=== PATIENT | female | born 1935 | race Caucasian/White ===

== ENCOUNTER 2016-08-01 23:13 | Inpatient (IN) | payer MEDICARE, BC ==
[~2016-08-01] VITALS: Ht 162.6 cm; Wt 50.8 kg
[2016-08-01] MEDS ORDERED: OLAN2.5T3 PO (23:42)
[2016-08-01] MEDS ORDERED: DIVA250T4 PO (23:42)
[2016-08-01] MEDS ORDERED: DONE10TA4 PO (23:42)
[2016-08-01] MEDS ORDERED: CARB1TAB21 PO (23:42)
[2016-08-01] MEDS ORDERED: OXYB5TAB29 PO (23:42)
[2016-08-02] MEDS ORDERED: CEFTRIAXONE 1 G in IV DEXTROSE 5% 50 ML IV ONE (01:00)
[2016-08-02] MEDS ORDERED: AZITHROMYCIN IV 500 MG in IV DEXTROSE 5% 250 ML IV ONE (01:00)
[2016-08-02] MEDS ORDERED: IV NORMAL SALINE 1000 ML BAG IV ONE (01:00)
[2016-08-02 01:56] LABS: POTASSIUM 4.8 mmol/L (3.5-5.1)
[2016-08-02 01:59] LABS: CREATININE 1.9 mg/dL (0.6-1.3)
--- NOTE | 2016-08-02 02:00 | NUR ---
Able to suction with yankur via oral and got about 20ml of yellow thick phelm. 02 sat up to 94% on 2L N/C
[2016-08-02 02:01] LABS: BASOPHILS # (AUTO) 0.1 K/uL (0.0-8.0); BASOPHILS % (AUTO) 0.5 % (0.0-2.0); EOSINOPHILS % (AUTO) 0.1 % (0.0-7.0); HEMOGLOBIN 12.8 G/DL (12.0-16.0); LYMPHOCYTES # (AUTO) 1.5 K/UL (0.8-4.8); LYMPHOCYTES % (AUTO) 9.8 % (20.5-51.5); MEAN CORPUSCULAR HEMOGLOBIN 28.9 UUG (27.0-31.0); MEAN CORPUSCULAR HGB CONC 32 g/dL (32.0-37.0); MEAN CORPUSCULAR VOLUME 90.4 FL (81.0-99.0); MONOCYTES # (AUTO) 2.9 K/UL (0.1-1.30); MONOCYTES % (AUTO) 19.3 % (0.0-11.0); NEUTROPHILS # (AUTO) 10.8 K/UL (1.8-8.9); NEUTROPHILS % (AUTO) 70.3 % (38.5-71.5); PLATELET COUNT (AUTO) 204 K/UL (150-450); RED BLOOD CELL COUNT(AUTO) 4.42 MIL/UL (4.2-5.4); WHITE BLOOD COUNT (AUTO) 15.3 K/UL (4.0-11.2)
[2016-08-02] MEDS ORDERED: AZITHROMYCIN 500 MG VIAL IV ONE (02:04)
[2016-08-02] MEDS ORDERED: CEFTRIAXONE 1 G VIAL ONE (02:05)
[2016-08-02 02:08] LABS: BILIRUBIN,DIRECT 0.2 mg/dL (0.0-0.2); BILIRUBIN,TOTAL 1.3 mg/dL (0.2-1.0); TOTAL PROTEIN, SERUM 7.9 g/dL (6.4-8.2)
[2016-08-02 02:25] LABS: BAND % (MANUAL) 13 % (0-10); LYMPHOCYTES % (MANUAL) 14 % (20-40); MONOCYTES % (MANUAL) 14 % (2-10); NEUTROPHILS % (MANUAL) 59 % (42-75)
[2016-08-02] MEDS ORDERED: CEFTRIAXONE 1 G in IV DEXTROSE 5% 50 ML IV SCH (03:15)
[2016-08-02] MEDS ORDERED: IPRATROPIUM BROMIDE 0.5 MG/2.5 ML NEBU NEB PRN (03:15)
[2016-08-02] MEDS ORDERED: ALBUTEROL SULFATE 2.5 MG/3 ML NEBU NEB PRN (03:15)
[2016-08-02] MEDS ORDERED: MAGNESIUM HYDROXIDE 30 ML LIQUID UDC PO PRN (03:15)
[2016-08-02] MEDS ORDERED: AZITHROMYCIN IV 500 MG in IV DEXTROSE 5% 250 ML IV SCH (03:15)
--- NOTE | 2016-08-02 03:50 | NUR ---
transfered to 2nd floor Tele via zach
[2016-08-02 04:00] VITALS: BP 122/62
[2016-08-02] MEDS: IV NS 1000 ML 1,000 ML IV PRN ×2 (04:15→17:13)
--- NOTE | 2016-08-02 04:15 | NUR ---
RECEIVED PT FROM ER, BIB BY STAFF [facility]IA [facility]. PT IN NO ACUTE DISTRESS. PT WITH BASELINE DEMENTIA, ON 4L O2 WITH SAT 92-93%. VS STABLE. PT ACCOMPANIED BY CAREGIVER, HISTORY OBTAINED WITH ASSISTANCE OF CAREGIVER. ADMISSION DONE PER PROTOCOL. ALL NEEDS ATTENDED AT THIS TIME. MADE COMFORTABLE. PT COUGHING UP THIS WHITE SECRETIONS, SUCTIONED PRN. ON TELE SR ON THE MONITOR. WILL CONTINUE TO MONITOR. Addendum: 08/02/16 at 1937 by KATY OWENS RN PATIENT WITH THIN* WHITE SECRETIONS.
--- NOTE | 2016-08-02 04:59 | NUR ---
PT GOING IN AND OUT OF SR AND A.FIB IN THE 150s, AND WITH SECOND LACTIC ACID DRAWN OF 3.8. MD MORILLO MADE AWARE WITH NO NEW ORDERS. PT ASYMPTOMATIC , ON IVF NS @ 75CC/HR. WILL CONTINUE TO MONITOR.
--- NOTE | 2016-08-02 06:45 | NUR ---
PT SON HERE THIS AM WITH DPOA, AND PT'S LIVING WILL. PER SON PT WANTS TO BE DNR/DNI STATED ON LIVING WILL, COPY ON CHART. PAGED MD MORILLO. AWAITING FOR CALLBACK. WILL ENDORSE TO DAY SHIFT NURSE.
[2016-08-02] MEDS: PANTOPRAZOLE SODIUM 40 MG TABLET.DR PO SCH (09:36)
[2016-08-02] MEDS: CARBIDOPA/LEVODOPA 25-100MG TABLET PO SCH ×3 (09:36→17:13)
[2016-08-02] MEDS: OXYBUTYNIN CHLORIDE 5 MG TABLET PO SCH ×2 (09:36→17:13)
[2016-08-02 12:06] VITALS: BP 121/79
[2016-08-02] MEDS: DONEPEZIL 10 MG TABLET PO SCH (13:05)
--- NOTE | 2016-08-02 13:17 | NUR ---
PATIENT IS VERY CONGESTED WITH LOUD AUDIBLE RALES REQUIRING FREQUENT SUCTIONING WITH O2 AT 4L/M BY NASAL CANULA CALLED AND SPOKE WITH DR YEFRI MORILLO WITH NEW ORDERS FOR SWALLOW EVAL AND CHANGE THE FREQUENCY OF THE HHN AND CHANGE THE DIET TO PURRED AT THIS TIME PENDING SWALLOW EVALUATION.
[2016-08-02] MEDS: IPRATROPIUM BROMIDE 0.5 MG/2.5 ML NEBU NEB SCH ×3 (13:40→19:37)
--- NOTE | 2016-08-02 14:56 | NUR ---
PATIENT WAS SEEN AND EXAMINED BY THE SPEECH AND LANGUAGE THERAPIST WITH RECOMMENDATION FOR PATIENT TO BE NO FOOD BY MOUTH EXCEPT MEDICATIONS AND ICE CHIPS WILL INFORM MD.PATIENTS PRIMARY HEAVY EQUIPMENT SALES ASSOCIATE IS AT THE BEDSIDE AND SHE WAS INSTRUCTED.
[2016-08-02] MEDS: ALBUTEROL SULFATE 2.5 MG/3 ML NEBU NEB SCH ×2 (16:03→22:04)
[2016-08-02 16:08] VITALS: BP 107/60
--- NOTE | 2016-08-02 17:19 | NUR ---
NGT INSERTED GAUGE 14 ORDERED TO RIGHT NARES AND STAT KUB ORDERED.
--- NOTE | 2016-08-02 18:34 | NUR ---
NGT REPORT RECOMMENDED TO ADVANCE THE TUBE 7CM DONE AND DUE MEDICATIONS GIVEN ORDERED AND PATIENT TOLERATED WELL.
[2016-08-02 20:00] VITALS: BP 128/90
[2016-08-02] MEDS: ACETAMINOPHEN 325 MG TABLET PO PRN (20:28)
[2016-08-02 21:00] VITALS: BP 94/55
[2016-08-02] MEDS ORDERED: DIVALPROEX 250 MG TABLET.DR PO SCH (21:00)
[2016-08-02] MEDS ORDERED: AMIODARONE HCL 200 MG TABLET NG SCH (21:15)
--- NOTE | 2016-08-02 21:15 | NUR ---
PT FEBRILE AT THIS TIME WITH TEMP OF 100.1, COLD MEASURES IMPLEMENTED AND PRN TYLENOL GIVEN PRESCRIBED. WILL REASSESS AND CONTINUE ATB TX. PT CONVERTING TO A.FIB IN 160s-170s ON TELE MONITOR. MD GLASS AT NURSING STATION, MADE AWARE, PT SEEN BY WITH NEW ORDER FOR METOPROLOL AND AMIODARONE RECEIVED, WILL GIVE ORDERED. SEE eMAR. WILL CONTINUE TO MONITOR.
[2016-08-02] MEDS: VALPROIC ACID 250 MG/5 ML LIQUID UDC GT SCH (21:59)
[2016-08-02] MEDS ORDERED: METOPROLOL TARTRATE 25 MG TABLET ONE (22:21)
[2016-08-02] MEDS: METOPROLOL TARTRATE 25 MG TABLET PO SCH (22:24)
[2016-08-02] MEDS ORDERED: AMIODARONE HCL 200 MG TABLET ONE ×2 (22:24→22:27)
--- NOTE | 2016-08-02 23:25 | NUR ---
PT IN BED RESTING, NO ACUTE DISTRESS NOTED. SUCTIONED PRN. ON TELE, SR ON THE MONITOR AT THIS TIME, WITH HR 75. WILL CONTINUE TO MONITOR.
[2016-08-03] VITALS: BP 109/63
[2016-08-03] MEDS: IPRATROPIUM BROMIDE 0.5 MG/2.5 ML NEBU NEB SCH ×7 (00:01→23:32)
[2016-08-03] MEDS: CEFTRIAXONE 1 G in IV DEXTROSE 5% 50 ML IV SCH (02:03)
[2016-08-03] MEDS: AZITHROMYCIN IV 500 MG in IV DEXTROSE 5% 250 ML IV SCH (03:07)
[2016-08-03 04:00] VITALS: BP 117/75
[2016-08-03] MEDS: ALBUTEROL SULFATE 2.5 MG/3 ML NEBU NEB SCH ×7 (04:37→23:32)
[2016-08-03] MEDS: PANTOPRAZOLE SODIUM 40 MG TABLET.DR PO SCH (06:17)
[2016-08-03 06:53] LABS: BASOPHILS % (AUTO) 0.1 % (0.0-2.0); LYMPHOCYTES # (AUTO) 1.4 K/UL (0.8-4.8); LYMPHOCYTES % (AUTO) 7.7 % (20.5-51.5); MEAN CORPUSCULAR HEMOGLOBIN 30.9 UUG (27.0-31.0); MEAN CORPUSCULAR HGB CONC 33 g/dL (32.0-37.0); MEAN CORPUSCULAR VOLUME 92.7 FL (81.0-99.0); MONOCYTES # (AUTO) 3.2 K/UL (0.1-1.30); MONOCYTES % (AUTO) 17.6 % (0.0-11.0); NEUTROPHILS # (AUTO) 13.4 K/UL (1.8-8.9); NEUTROPHILS % (AUTO) 74.6 % (38.5-71.5)
--- NOTE | 2016-08-03 06:59 | NUR ---
PATIENT IN BED RESTING, SLEPT WELL PER SHIFT. NO S/S OF RESPIRATORY DISTRESS NOTED. REMAINS ON 4L O2 VIA NC O2 SAT WNL. SUCTIONED PRN. BREATHING TX BY RT GIVEN. TURNED/REPOSITIONED Q2H. ALL DUE MEDS GIVEN BY NGT TOLERATED WELL. KEPT CLEAN AND DRY.ON TELE SR ON THE MONITOR AT THIS TIME WITH HR 80. ALL NEEDS MET. SAFETY AND COMFORT MEASURES PROVIDED.
[2016-08-03 07:08] LABS: PLATELET COUNT (AUTO) 129 K/UL (150-450)
[2016-08-03 07:09] LABS: HEMATOCRIT 29.3 % (37-47); HEMOGLOBIN 9.8 G/DL (12.0-16.0); RED BLOOD CELL COUNT(AUTO) 3.16 MIL/UL (4.2-5.4)
[2016-08-03 07:13] LABS: MAGNESIUM 1.9 mg/dL (1.8-2.4); POTASSIUM 4.5 mmol/L (3.5-5.1)
[2016-08-03 07:19] LABS: CREATININE 1.7 mg/dL (0.6-1.3)
[2016-08-03 07:21] LABS: THYROID STIMULATING HORMONE 0.948 mIU/mL (0.358-3.740)
--- NOTE | 2016-08-03 07:45 | NUR ---
PT RECEIVED IN BED SLEEPING.PRIVATE ENTERPRISE BUSINESS ARCHITECT AND DAUGHTER IS AT BED SIDE..V/S ARE STABLE.
[2016-08-03] MEDS: OXYBUTYNIN CHLORIDE 5 MG TABLET PO SCH ×2 (08:12→16:01)
[2016-08-03] MEDS: DONEPEZIL 10 MG TABLET PO SCH (08:12)
[2016-08-03] MEDS: METOPROLOL TARTRATE 25 MG TABLET PO SCH ×2 (08:13→20:15)
[2016-08-03] MEDS: CARBIDOPA/LEVODOPA 25-100MG TABLET PO SCH ×3 (08:13→16:01)
[2016-08-03 08:39] LABS: BAND % (MANUAL) 18 % (0-10); LYMPHOCYTES % (MANUAL) 10 % (20-40); MONOCYTES % (MANUAL) 17 % (2-10); NEUTROPHILS % (MANUAL) 55 % (42-75)
[2016-08-03] MEDS: IV NS 1000 ML 1,000 ML IV PRN ×2 (09:12→20:54)
[2016-08-03] MEDS ORDERED: AMIODARONE HCL 200 MG TABLET NG SCH (09:58)
[2016-08-03 11:42] VITALS: BP 122/78
--- NOTE | 2016-08-03 12:30 | NUR ---
PT HEART RATE WENT UP TP 136 -140 MD MADE AWARE.
--- NOTE | 2016-08-03 15:40 | NUR ---
PT HEART RATE WENT UP TO 150 DR GLASS MADE AWARE.
[2016-08-03] MEDS: ACETAMINOPHEN 325 MG TABLET PO PRN ×2 (16:01→20:54)
[2016-08-03 16:10] VITALS: BP 100/73
--- NOTE | 2016-08-03 18:12 | NUR ---
PT RESTING IN HER BED SITTER AT BED SIDE PT HEART RATE IS 132.CHARGE NURSE MADE AWARE.
--- NOTE | 2016-08-03 19:30 | NUR ---
NSG: PT IN BED, NO ACUTE DISTRESS NOTED. HOB ELEVATED 45 DEGREES. NGT ON RIGHT NARES, CLAMPED. ON CONT IVF WITH NS AT 75ML/HR. TELE, AFIB WITH HR 106-115. DR. GLASS AWARE OF UNCONTROLLED AFIB. ON AMIODARONE AND LOPRESSOR PO. PRIVATE CAREGIVER AT THE BEDSIDE. SCD'S IN PLACE. CONT TO MONITOR.
[2016-08-03] MEDS: AMIODARONE HCL 200 MG TABLET PO SCH (20:14)
[2016-08-03] MEDS: VALPROIC ACID 250 MG/5 ML LIQUID UDC GT SCH (20:15)
[2016-08-03] MEDS: LACTOBACILLUS RHAMNOSUS GG 1 EACH CAPSULE PO SCH (20:15)
--- NOTE | 2016-08-03 20:30 | NUR ---
NSG: PT DIAPHORETIC. CHECK BLOOD SUGAR, 106. CONT TO MONITOR.
[2016-08-03 20:45] VITALS: BP 114/76
--- NOTE | 2016-08-03 20:50 | NUR ---
NSG: PT HR IN 160'S AFIB. CHECK TEMP, 99.7F AX. ALSO, PT AGITATED, RT SUCTIONED NASALLY. WILL MEDICATE WITH TYLENOL.
[2016-08-03] MEDS: HYDROCODONE/APAP 5-325MG TABLET PO PRN (23:33)
[2016-08-03 23:51] VITALS: BP 135/71
[2016-08-04] MEDS: CEFTRIAXONE 1 G in IV DEXTROSE 5% 50 ML IV SCH (02:24)
[2016-08-04] MEDS: ACETAMINOPHEN 325 MG TABLET PO PRN ×2 (02:43→17:47)
[2016-08-04] MEDS: AZITHROMYCIN IV 500 MG in IV DEXTROSE 5% 250 ML IV SCH (03:06)
[2016-08-04] MEDS: IPRATROPIUM BROMIDE 0.5 MG/2.5 ML NEBU NEB SCH ×6 (03:37→22:41)
[2016-08-04] MEDS: ALBUTEROL SULFATE 2.5 MG/3 ML NEBU NEB SCH ×6 (03:37→22:41)
[2016-08-04 04:00] VITALS: BP 134/73
--- NOTE | 2016-08-04 05:44 | NUR ---
nsg: pt still lethargic, moans and groans at times. afebrile. however, still in uncontrolled afib with hr 117. all needs attended. suctioned prn. cont to monitor.
[2016-08-04] MEDS: PANTOPRAZOLE SODIUM 40 MG TABLET.DR PO SCH ×2 (05:47→05:54)
--- NOTE | 2016-08-04 05:55 | NUR ---
nsg: unable to give protonix tab via ngt, unable to crushed
--- NOTE | 2016-08-04 07:45 | NUR ---
PT MOANING IN BED, DAUGHTER AT BEDSIDE SAID PT STARTED TO MOAN ABOUT AN HOUR AGO, VS STABLE, UNDERGOING BREATHING TREATMENT AT THIS TIME. PT NPO FOR VIDEO SWALLOW STUDY, ALL SAFETY AND COMFORT MEASURES ATTENDED TO, CALL LIGHT IN REACH, WILL CONTINUE TO MONITOR
[2016-08-04 08:33] LABS: BASOPHILS % (AUTO) 0.2 % (0.0-2.0); EOSINOPHILS # (AUTO) 0.1 K/uL (0.0-0.7); EOSINOPHILS % (AUTO) 0.4 % (0.0-7.0); HEMATOCRIT 27.4 % (37-47); HEMOGLOBIN 9.1 G/DL (12.0-16.0); LYMPHOCYTES # (AUTO) 1.3 K/UL (0.8-4.8); LYMPHOCYTES % (AUTO) 9.9 % (20.5-51.5); MEAN CORPUSCULAR HEMOGLOBIN 30.1 UUG (27.0-31.0); MEAN CORPUSCULAR HGB CONC 33 g/dL (32.0-37.0); MEAN CORPUSCULAR VOLUME 90.3 FL (81.0-99.0); MONOCYTES # (AUTO) 1.7 K/UL (0.1-1.30); MONOCYTES % (AUTO) 12.3 % (0.0-11.0); NEUTROPHILS # (AUTO) 10.3 K/UL (1.8-8.9); NEUTROPHILS % (AUTO) 77.2 % (38.5-71.5); PLATELET COUNT (AUTO) 116 K/UL (150-450); RED BLOOD CELL COUNT(AUTO) 3.04 MIL/UL (4.2-5.4); WHITE BLOOD COUNT (AUTO) 13.4 K/UL (4.0-11.2)
--- NOTE | 2016-08-04 08:33 | NUR ---
PT HAS STOPPED MOANING AND IS RESTING COMFORTABLY IN BED AT THIS TIME, WILL CONTINUE TO MONITOR
[2016-08-04 08:52] LABS: BAND % (MANUAL) 10 % (0-10); LYMPHOCYTES % (MANUAL) 11 % (20-40); MONOCYTES % (MANUAL) 16 % (2-10); NEUTROPHILS % (MANUAL) 63 % (42-75)
[2016-08-04 08:56] LABS: BILIRUBIN,TOTAL 0.5 mg/dL (0.2-1.0); MAGNESIUM 2.2 mg/dL (1.8-2.4); PHOSPHOROUS 3.2 mg/dL (2.5-4.9); POTASSIUM 4.2 mmol/L (3.5-5.1)
[2016-08-04 09:14] LABS: CREATININE 1.5 mg/dL (0.6-1.3)
[2016-08-04] MEDS: METOPROLOL TARTRATE 25 MG TABLET PO SCH ×2 (09:15→20:59)
[2016-08-04] MEDS: AMIODARONE HCL 200 MG TABLET PO SCH ×2 (09:16→20:58)
[2016-08-04] MEDS: LACTOBACILLUS RHAMNOSUS GG 1 EACH CAPSULE PO SCH ×2 (09:16→20:57)
[2016-08-04] MEDS: HYDROCODONE/APAP 5-325MG TABLET PO PRN ×2 (09:16→23:35)
[2016-08-04] MEDS: CARBIDOPA/LEVODOPA 25-100MG TABLET PO SCH ×3 (09:16→17:47)
[2016-08-04] MEDS: DONEPEZIL 10 MG TABLET PO SCH (09:16)
[2016-08-04] MEDS: OXYBUTYNIN CHLORIDE 5 MG TABLET PO SCH ×2 (09:16→17:47)
[2016-08-04 11:01] LABS: IRON, SERUM 13 ug/dL (50-175)
[2016-08-04 11:45] VITALS: BP 140/70
--- NOTE | 2016-08-04 13:01 | NUR ---
URINE SENT TO LAB
[2016-08-04 14:00] LABS: *CREATININE,URINE 192.4 mg/dL (30-125); *URINE TOTAL PROTEIN RANDOM 103.4 mg/dL (<150/24HR)
[2016-08-04 14:05] LABS: *BILIRUBIN,URIN NEGATIVE (NEGATIVE); *BLOOD, URINE NEGATIVE (NEGATIVE); *CLARITY,URINE CLEAR (CLEAR); *COLOR,URINE YELLOW (YELLOW); *KETONES,URINE TRACE (NEGATIVE); *PROTEIN,URINE 2+ (NEGATIVE); *UROBILINOGEN,URINE 0.2 E.U./dl (NORMAL); LEUKOCYTE ESTERASE ,URINE NEGATIVE (NEGATIVE); NITRITE, URINE NEGATIVE (NEGATIVE); UGLUCOSE NEGATIVE (NEGATIVE)
[2016-08-04 14:13] LABS: BACTERIA,URINE FEW /HPF (NONE SEEN); RBC,URINE 0-3 /HPF (0-3); SQUAMOUS EPITHELIAL CELL,UR FEW /HPF (NONE SEEN)
[2016-08-04] MEDS: IV NS 1000 ML 1,000 ML IV PRN (14:36)
--- NOTE | 2016-08-04 15:06 | NUR ---
RECOMMENDATION FOR FURTHERING NG TUBE NOTED IN CHEST XRAY. ADVANCE NG TUBE AND KUB ORDERED
[2016-08-04 16:00] VITALS: BP 143/68
--- NOTE | 2016-08-04 17:33 | NUR ---
PAGED DR BARRIOS, NO RETURN PHONE CALL AT THIS TIME. SPOKE WITH DR FERNANDEZ REGARDING NG TUBE PLACEMENT, MD ADVISED NOT SAFE TO GIVE MEDS. WILL CALL DR BARRIOS AGAIN
--- NOTE | 2016-08-04 17:44 | NUR ---
DR BARRIOS MADE AWARE OF SITUATION AND GAVE ORDERS TO RETRACT NG TUBE 3 CM AND CONTINUE GIVING MEDICATIONS.
[2016-08-04] MEDS: IV D5/ 0.9% NACL 1,000 ML IV PRN (18:42)
--- NOTE | 2016-08-04 18:43 | NUR ---
ng tube retracted and medications given per orders. pt awake in bed, in no acute distress. caregiver and daughter at bedside. call light in reach.
[2016-08-04 20:19] VITALS: BP 161/82
[2016-08-04] MEDS: VALPROIC ACID 250 MG/5 ML LIQUID UDC GT SCH (20:59)
[2016-08-04 23:48] VITALS: BP 160/80
[2016-08-05] MEDS: CEFTRIAXONE 1 G in IV DEXTROSE 5% 50 ML IV SCH (01:10)
[2016-08-05] MEDS: ACETAMINOPHEN 325 MG TABLET PO PRN ×2 (01:11→13:34)
[2016-08-05] MEDS: AZITHROMYCIN IV 500 MG in IV DEXTROSE 5% 250 ML IV SCH (02:14)
[2016-08-05] MEDS: IPRATROPIUM BROMIDE 0.5 MG/2.5 ML NEBU NEB SCH ×6 (02:30→23:30)
[2016-08-05] MEDS: ALBUTEROL SULFATE 2.5 MG/3 ML NEBU NEB SCH ×6 (02:30→23:30)
[2016-08-05 04:00] VITALS: BP 171/84
--- NOTE | 2016-08-05 04:54 | NUR ---
PT IN BED, SLEPT INTERMITTENTLY. PT WAS MOANING AND SHAKING AT TIMES, WAS GIVEN NORCO PRESCRIBED, HELPED FOR SHORT PERIOD OF TIME. SR ON TELE MONITOR. NG TUBE PATENT AND INTACT. HOB ELEVATED AT ALL TIMES. TURNED AND REPOSITIONED. SAFETY MAINTAINED. SITTER AT BEDSIDE.
[2016-08-05] MEDS: PANTOPRAZOLE SODIUM 40 MG TABLET.DR PO SCH (06:08)
[2016-08-05] MEDS: METOPROLOL TARTRATE 25 MG TABLET PO SCH ×2 (06:09→21:00)
--- NOTE | 2016-08-05 06:10 | NUR ---
METOPROLOL GIVEN EARLIER THAN SCHEDULED DUE TO BP ELEVATED.
[2016-08-05 07:23] LABS: BASOPHILS % (AUTO) 0.2 % (0.0-2.0); EOSINOPHILS % (AUTO) 0.2 % (0.0-7.0); HEMATOCRIT 28.1 % (37-47); HEMOGLOBIN 9.3 G/DL (12.0-16.0); LYMPHOCYTES # (AUTO) 1.3 K/UL (0.8-4.8); LYMPHOCYTES % (AUTO) 9.7 % (20.5-51.5); MEAN CORPUSCULAR HGB CONC 33 g/dL (32.0-37.0); MEAN CORPUSCULAR VOLUME 90.1 FL (81.0-99.0); MONOCYTES # (AUTO) 0.9 K/UL (0.1-1.30); MONOCYTES % (AUTO) 6.8 % (0.0-11.0); NEUTROPHILS # (AUTO) 11.2 K/UL (1.8-8.9); NEUTROPHILS % (AUTO) 83.1 % (38.5-71.5); PLATELET COUNT (AUTO) 141 K/UL (150-450); RED BLOOD CELL COUNT(AUTO) 3.11 MIL/UL (4.2-5.4); WHITE BLOOD COUNT (AUTO) 13.4 K/UL (4.0-11.2)
[2016-08-05 07:40] LABS: BILIRUBIN,TOTAL 0.5 mg/dL (0.2-1.0); MAGNESIUM 2.4 mg/dL (1.8-2.4); PHOSPHOROUS 3.4 mg/dL (2.5-4.9); POTASSIUM 4.2 mmol/L (3.5-5.1); TOTAL PROTEIN, SERUM 6.5 g/dL (6.4-8.2)
[2016-08-05 07:56] LABS: CREATININE 1.5 mg/dL (0.6-1.3)
--- NOTE | 2016-08-05 08:00 | NUR ---
Awake, confused, moaning intermittently, on moderate high back rest. NGT intact. IVF Infusing. Daughter and caregiver at bedside. For CT Head, transported by bed
[2016-08-05 08:04] LABS: BAND % (MANUAL) 4 % (0-10); LYMPHOCYTES % (MANUAL) 9 % (20-40); MONOCYTES % (MANUAL) 2 % (2-10); NEUTROPHILS % (MANUAL) 85 % (42-75)
[2016-08-05] MEDS: DONEPEZIL 10 MG TABLET PO SCH (09:12)
[2016-08-05] MEDS: PIPERACILLIN/TAZOBACTAM/D5W 2.25 G in PREMIXED 1 EACH IV SCH ×3 (09:12→20:24)
[2016-08-05] MEDS: AMIODARONE HCL 200 MG TABLET PO SCH ×2 (09:13→21:00)
[2016-08-05] MEDS: LACTOBACILLUS RHAMNOSUS GG 1 EACH CAPSULE PO SCH ×2 (09:13→21:00)
[2016-08-05] MEDS: OXYBUTYNIN CHLORIDE 5 MG TABLET PO SCH ×2 (09:14→17:00)
[2016-08-05] MEDS: CARBIDOPA/LEVODOPA 25-100MG TABLET PO SCH ×3 (09:14→17:00)
[2016-08-05] MEDS: hydrALAZINE HCL 20 MG/1 ML VIAL IV PRN (09:28)
--- NOTE | 2016-08-05 09:28 | NUR ---
Elevated BP. Hydralazine IV given after verified. Zosyn and Vanco IV given as ordered
[2016-08-05] MEDS: HYDROCODONE/APAP 5-325MG TABLET PO PRN (09:53)
[2016-08-05] MEDS: VANCOMYCIN IV 750 MG in IV DEXTROSE 5% 250 ML IV SCH (09:53)
[2016-08-05 11:56] VITALS: BP 130/51
--- NOTE | 2016-08-05 13:00 | NUR ---
Dr. Reyes informed that noted gurgling/crackles after giving medication through NGT. Secretions suctioned. CXR ordered.
--- NOTE | 2016-08-05 15:00 | NUR ---
Assisted out of bed by PT, ambulated outside of room.
[2016-08-05 15:30] VITALS: BP 151/75
--- NOTE | 2016-08-05 16:17 | NUR ---
Clinical pharmacy note-Vancomycin dosing per pharmacy Subjective: To start Vancomycin dosing on this patient for pneumonia Objective: BUN 42 Scr 1.5 WBC 13.4 Temp 99.7 Assessment/Plan: Vancomycin 750mg IV every 36hrs to start(first dose today at 1000) and draw trough by 4th dose(not ordered yet) for expected trough around 16. Will monitor renal function closely to adjust the dose if needed. Will follow daily.
--- NOTE | 2016-08-05 18:30 | NUR ---
NGT reinserted to left nares. Stat CXR ordered. Endorsed for further care and follow up
[2016-08-05] MEDS: IV D5/ 0.9% NACL 1,000 ML IV PRN (18:41)
[2016-08-05 19:00] VITALS: BP 148/83
[2016-08-05] MEDS: VALPROIC ACID 250 MG/5 ML LIQUID UDC GT SCH (21:00)
--- NOTE | 2016-08-05 23:50 | NUR ---
NGT intact but Xray showed esophageal stricture vs. obstruction. Jazzy Clay NP notified. All night po/gt meds held for now. Vital signs are BP 135/85 HR-135 A-fib on the monitor. Patient anxious at this time c/o gen body discomfort.
[2016-08-06] VITALS: BP 138/87
[2016-08-06] MEDS: MORPHINE SULFATE 2 MG/1 ML DISP.SYRIN IV PRN ×2 (00:49→20:24)
[2016-08-06] MEDS ORDERED: MORPHINE SULFATE 2 MG/1 ML DISP.SYRIN ONE (00:55)
--- NOTE | 2016-08-06 01:11 | NUR ---
Morphine 1mg IVP adm & monitored.
[2016-08-06] MEDS: PIPERACILLIN/TAZOBACTAM/D5W 2.25 G in PREMIXED 1 EACH IV SCH ×4 (01:18→19:48)
[2016-08-06] MEDS: AMIODARONE HCL IV 900 MG in IV DEXTROSE 5% 482 ML IV PRN (01:21)
--- NOTE | 2016-08-06 01:30 | NUR ---
Amiodarone drip 0.5 mg/min started as maintenance dose while patient has no PO access.
--- NOTE | 2016-08-06 02:00 | NUR ---
Sleeping comfortably. Tele A-flutter HR-115.
[2016-08-06] MEDS: ALBUTEROL SULFATE 2.5 MG/3 ML NEBU NEB SCH ×5 (02:20→19:16)
[2016-08-06] MEDS: IPRATROPIUM BROMIDE 0.5 MG/2.5 ML NEBU NEB SCH ×6 (02:21→19:16)
[2016-08-06] MEDS: PANTOPRAZOLE SODIUM 40 MG TABLET.DR PO SCH (03:34)
[2016-08-06 04:00] VITALS: BP 144/86
[2016-08-06 06:40] LABS: BILIRUBIN,TOTAL 0.9 mg/dL (0.2-1.0); MAGNESIUM 2.1 mg/dL (1.8-2.4); PHOSPHOROUS 2.4 mg/dL (2.5-4.9); POTASSIUM 3.7 mmol/L (3.5-5.1); TOTAL PROTEIN, SERUM 6.3 g/dL (6.4-8.2)
--- NOTE | 2016-08-06 06:41 | NUR ---
Still NPO, oral care provided & suctioned PRN. Amiodarone drip 0.5mg/min infusing. Patient awake at this time, daughter at bedside. Tele showed A-flutter underlying sinus tachy 115-120 on the monitor.
[2016-08-06 07:02] LABS: BASOPHILS % (AUTO) 0.3 % (0.0-2.0); EOSINOPHILS % (AUTO) 0.2 % (0.0-7.0); HEMATOCRIT 28.9 % (37-47); HEMOGLOBIN 9.9 G/DL (12.0-16.0); LYMPHOCYTES # (AUTO) 1.4 K/UL (0.8-4.8); MEAN CORPUSCULAR HEMOGLOBIN 31.1 UUG (27.0-31.0); MEAN CORPUSCULAR HGB CONC 34 g/dL (32.0-37.0); MEAN CORPUSCULAR VOLUME 91.3 FL (81.0-99.0); MONOCYTES # (AUTO) 1.6 K/UL (0.1-1.30); MONOCYTES % (AUTO) 10.6 % (0.0-11.0); NEUTROPHILS # (AUTO) 12.3 K/UL (1.8-8.9); NEUTROPHILS % (AUTO) 79.9 % (38.5-71.5); PLATELET COUNT (AUTO) 149 K/UL (150-450); RED BLOOD CELL COUNT(AUTO) 3.17 MIL/UL (4.2-5.4); WHITE BLOOD COUNT (AUTO) 15.3 K/UL (4.0-11.2)
[2016-08-06 07:07] LABS: CREATININE 1.4 mg/dL (0.6-1.3)
[2016-08-06 07:59] VITALS: BP 153/95
--- NOTE | 2016-08-06 08:00 | NUR ---
awake, oriented to self, follows commands, head of bed elevated, NGT clamped, on 4l/nc, moans constantly but denies of pain, suctioned of thin whitish phlegm orally, Tele afib 120's, Amiodarone drip at 0.5mg/min via iv pump, repositioned for comfort, daughter at bedside
[2016-08-06] MEDS: hydrALAZINE HCL 20 MG/1 ML VIAL IV PRN (08:20)
[2016-08-06] MEDS: AMIODARONE HCL 200 MG TABLET PO SCH (08:26)
[2016-08-06] MEDS: DONEPEZIL 10 MG TABLET PO SCH (08:26)
[2016-08-06] MEDS: OXYBUTYNIN CHLORIDE 5 MG TABLET PO SCH ×2 (08:27→16:36)
[2016-08-06] MEDS: METOPROLOL TARTRATE 25 MG TABLET PO SCH (08:27)
[2016-08-06] MEDS: LACTOBACILLUS RHAMNOSUS GG 1 EACH CAPSULE PO SCH ×2 (08:27→21:00)
[2016-08-06] MEDS: CARBIDOPA/LEVODOPA 25-100MG TABLET PO SCH ×3 (08:28→16:36)
--- NOTE | 2016-08-06 10:00 | NUR ---
Temp 100.2- medicated with Tylenol 650 mg rectally, cooling measures done, repositioned to left side with heels off loaded with pillows, no redness noted, first step mattress applied
[2016-08-06] MEDS: ACETAMINOPHEN 650 MG SUPP.RECT RC PRN ×2 (10:03→22:14)
[2016-08-06 11:15] LABS: BAND % (MANUAL) 3 % (0-10); LYMPHOCYTES % (MANUAL) 9 % (20-40); MONOCYTES % (MANUAL) 12 % (2-10); NEUTROPHILS % (MANUAL) 76 % (42-75)
[2016-08-06] MEDS: IV D5/ 0.9% NACL 1,000 ML IV PRN (11:37)
[2016-08-06 12:00] VITALS: BP 150/89
--- NOTE | 2016-08-06 12:00 | NUR ---
Dr Cosby called and informed of the issue re NGT from different shifts (curls at the hiatal hernia)- order to remove NGT given and carried out
[2016-08-06] MEDS: PANTOPRAZOLE SODIUM 40 MG VIAL IV SCH (13:46)
--- NOTE | 2016-08-06 14:45 | NUR ---
Dr Oseguera here and saw pt- to talk to family
[2016-08-06] MEDS: LABETALOL HCL 100 MG/20 ML VIAL IV PRN ×3 (15:10→20:59)
--- NOTE | 2016-08-06 15:10 | NUR ---
BP 156/90 HR 126. Labetolol 10mg iv given as ordered prn-will continue to monitor
[2016-08-06] MEDS ORDERED: NEUTRA PHOS PACKET PO ONE (15:45)
--- NOTE | 2016-08-06 16:00 | NUR ---
respiratory treatment given by RT and was suctioned as well, tele SR 80's,
--- NOTE | 2016-08-06 16:15 | NUR ---
spoke to pharmacist and informed pt is NPO and therefore cannot take po neutra phos- pharmacist to contact
[2016-08-06 16:30] VITALS: BP 136/68
--- NOTE | 2016-08-06 16:32 | NUR ---
Clinical pharmacy note-Vancomycin dosing per pharmacy Subjective: To continue Vancomycin dosing on this patient for pneumonia Objective: BUN 35 Scr 1.4 WBC 15.3 Temp 100.2 Assessment/Plan: Continue Vancomycin 750mg IV every 36hrs (second dose tonight at 1999) and draw trough by 4th dose(not ordered yet) for expected trough around 16. Will monitor renal function closely to adjust the dose if needed. Will follow daily.
--- NOTE | 2016-08-06 17:00 | NUR ---
pt sleeping at this time, family at bedside
--- NOTE | 2016-08-06 18:21 | NUR ---
resting calm and relax, no distress noted, tele SR 70's , all needs attended and met, repositioned q 2h with heels off loaded with pillows, no redness of heels noted, safety measures maintained, personal financial advisor and son here. Son spoke to Dr Cosby via the phone
[2016-08-06 19:00] VITALS: BP 163/92
--- NOTE | 2016-08-06 19:30 | NUR ---
Received patient awake,alert,moaning, denies pain when personal customer care assistant asked,son visiting, receiving breathing treatment and suction by R.T., no respiratory distress noted, continue Amiodarone drip maintain dose at 0.5 mg/min as order,SR/ A Fib on monitor rate 76 bpm.
--- NOTE | 2016-08-06 20:20 | NUR ---
registered nursing professor called in wants to talk to patient's son, but he is not at bedside.
--- NOTE | 2016-08-06 20:25 | NUR ---
patient restless moaning in pain, Morphine 1 mg iv admin ,bp 183/107, will continue to monitor.
[2016-08-06] MEDS: POTASSIUM PHOSPHATE MM 5 MMOL in IV DEXTROSE 5% 100 ML IV SCH ×2 (20:35→23:05)
[2016-08-06] MEDS ORDERED: AMIODARONE HCL 200 MG TABLET PO SCH (21:00)
[2016-08-06] MEDS: VALPROIC ACID 250 MG/5 ML LIQUID UDC GT SCH (21:00)
--- NOTE | 2016-08-06 21:00 | NUR ---
patient dozing on and off, bp 163/92, HR 106 bpm, Trandate 10 mg iv given.
[2016-08-06] MEDS: VANCOMYCIN IV 750 MG in IV DEXTROSE 5% 250 ML IV SCH (22:13)
[2016-08-07] VITALS (10 sets, daily range): BP systolic 127–154; BP diastolic 67–85
--- NOTE | 2016-08-07 00:05 | NUR ---
PATIENT SLEEPING APPEARS COMFORTABLE,BP 127/81,SR/A FIB ON MONITOR.
[2016-08-07] MEDS: IPRATROPIUM BROMIDE 0.5 MG/2.5 ML NEBU NEB SCH ×7 (00:16→22:30)
[2016-08-07] MEDS: ALBUTEROL SULFATE 2.5 MG/3 ML NEBU NEB SCH ×7 (00:16→22:30)
[2016-08-07] MEDS: POTASSIUM PHOSPHATE MM 5 MMOL in IV DEXTROSE 5% 100 ML IV SCH ×2 (01:55→04:38)
[2016-08-07] MEDS: PIPERACILLIN/TAZOBACTAM/D5W 2.25 G in PREMIXED 1 EACH IV SCH ×4 (01:56→20:11)
--- NOTE | 2016-08-07 03:30 | NUR ---
BREATHING TREATMENT AND SUCTION BY R.T.,TURN AND REPOSITIONING,SKIN CARE PROVIDED
[2016-08-07] MEDS: AMIODARONE HCL IV 900 MG in IV DEXTROSE 5% 482 ML IV PRN (04:42)
[2016-08-07] MEDS: MORPHINE SULFATE 2 MG/1 ML DISP.SYRIN IV PRN ×4 (04:42→22:29)
[2016-08-07 05:22] LABS: BASOPHILS # (AUTO) 0.1 K/uL (0.0-8.0); BASOPHILS % (AUTO) 0.3 % (0.0-2.0); EOSINOPHILS # (AUTO) 0.1 K/uL (0.0-0.7); EOSINOPHILS % (AUTO) 0.4 % (0.0-7.0); HEMATOCRIT 31.1 % (37-47); HEMOGLOBIN 10.1 G/DL (12.0-16.0); LYMPHOCYTES # (AUTO) 2.6 K/UL (0.8-4.8); LYMPHOCYTES % (AUTO) 12.6 % (20.5-51.5); MEAN CORPUSCULAR HEMOGLOBIN 29.5 UUG (27.0-31.0); MEAN CORPUSCULAR HGB CONC 33 g/dL (32.0-37.0); MEAN CORPUSCULAR VOLUME 90.3 FL (81.0-99.0); MONOCYTES # (AUTO) 2.8 K/UL (0.1-1.30); MONOCYTES % (AUTO) 13.3 % (0.0-11.0); NEUTROPHILS # (AUTO) 15.3 K/UL (1.8-8.9); NEUTROPHILS % (AUTO) 73.4 % (38.5-71.5); PLATELET COUNT (AUTO) 224 K/UL (150-450); RED BLOOD CELL COUNT(AUTO) 3.44 MIL/UL (4.2-5.4); WHITE BLOOD COUNT (AUTO) 20.9 K/UL (4.0-11.2)
[2016-08-07 05:35] LABS: MAGNESIUM 2.1 mg/dL (1.8-2.4); PHOSPHOROUS 3.6 mg/dL (2.5-4.9)
[2016-08-07 05:37] LABS: PHOSPHOROUS 3.7 mg/dL (2.5-4.9); POTASSIUM 4.1 mmol/L (3.5-5.1)
[2016-08-07 06:00] LABS: CREATININE 1.5 mg/dL (0.6-1.3)
--- NOTE | 2016-08-07 06:40 | NUR ---
PATIENT SLEEPING, SR RATE 60'S ,NO DISTRESS NOTED.
[2016-08-07] MEDS ORDERED: PROPOFOL 200 MG/20 ML BOTTLE IV ONE (07:52)
[2016-08-07] MEDS ORDERED: CEFAZOLIN 1 G VIAL MC ONE (07:52)
[2016-08-07] MEDS ORDERED: IV NORMAL SALINE 1000 ML BAG IV ONE (07:53)
--- NOTE | 2016-08-07 08:00 | NUR ---
lethargic, on 4l/nc , tele SR 70's, kept NPO, head of bed elevated, aspiration precautions observed, amiodarone drip at 0.5mg/min at 16.6ml/hr via iv pump. family at bedside, needs attended, RT here for breathing treatment and suctioned patient, repositioned to right side with heels off loaded with pillows. Safety measures maintained.
[2016-08-07] MEDS: PANTOPRAZOLE SODIUM 40 MG VIAL IV SCH (08:07)
[2016-08-07] MEDS: OXYBUTYNIN CHLORIDE 5 MG TABLET PO SCH (08:15)
[2016-08-07] MEDS: LACTOBACILLUS RHAMNOSUS GG 1 EACH CAPSULE PO SCH (08:15)
[2016-08-07] MEDS: DONEPEZIL 10 MG TABLET PO SCH (08:15)
[2016-08-07] MEDS: CARBIDOPA/LEVODOPA 25-100MG TABLET PO SCH ×2 (08:16→12:38)
--- NOTE | 2016-08-07 10:00 | NUR ---
Dr Snider here and spoke to son
[2016-08-07] MEDS: METOPROLOL TARTRATE 5 MG/5 ML VIAL IVP PRN ×2 (10:27→22:04)
--- NOTE | 2016-08-07 10:39 | NUR ---
Tele a flutter 113, Metoprolol 5mg IV given as prn, seen by Dr Vega,-back to SR 65- will continue to monitor
--- NOTE | 2016-08-07 10:50 | NUR ---
consent for EGD with peg insertion signed by Humphrey Seo (son)
--- NOTE | 2016-08-07 11:26 | NUR ---
PATIENT RESTLESS AND MOANING, GAVE MORPHINE 1 MG IVP. REASSESS IN 30 MINS.
--- NOTE | 2016-08-07 12:00 | NUR ---
RESTING COMFORTABLY, TELE SINUS RYTHYM AT 63 140/62
[2016-08-07] MEDS: ACETAMINOPHEN 650 MG SUPP.RECT RC PRN ×2 (14:05→22:03)
--- NOTE | 2016-08-07 14:59 | NUR ---
to GI lab per bed
--- NOTE | 2016-08-07 15:24 | NUR ---
Clinical pharmacy note-Vancomycin dosing per pharmacy Subjective: To continue Vancomycin dosing on this patient for pneumonia Objective: BUN 28 Scr 1.5 WBC 20.9 Temp 98.8 Assessment/Plan: Vancomycin 750mg IV every 36hrs to continue (second dose was yeseterday at 2200) and draw trough by 4th dose(not ordered yet) for expected trough around 16. Will monitor renal function closely to adjust the dose if needed. Will follow daily.
[2016-08-07] MEDS ORDERED: SUCCINYLCHOLINE CHLORIDE 200 MG/10 ML VIAL ONE (15:31)
[2016-08-07] MEDS ORDERED: ROCURONIUM BROMIDE 50 MG/5 ML VIAL ONE (15:31)
--- NOTE | 2016-08-07 16:10 | NUR ---
received from recovery room per bed, awake and able to answer questions, tele a fib 115, vs taken, placed on 4l/nc- sat at 95%, GT clamped at this time, dsg with small amount of serous drainage, will continue to monitor closely
--- NOTE | 2016-08-07 16:46 | NUR ---
Tele SR 70's, personal home care manager rn at bedside, continue to monitor closely
[2016-08-07] MEDS ORDERED: OXYBUTYNIN CHLORIDE 5 MG TABLET GT SCH (17:09)
[2016-08-07] MEDS ORDERED: MAGNESIUM HYDROXIDE 30 ML LIQUID UDC GT PRN (17:11)
[2016-08-07] MEDS ORDERED: CARBIDOPA/LEVODOPA 25-100MG TABLET GT SCH (17:11)
[2016-08-07] MEDS: CARBIDOPA/LEVODOPA 25-100MG TABLET GT SCH (17:33)
[2016-08-07] MEDS: OXYBUTYNIN CHLORIDE 5 MG TABLET GT SCH (17:36)
--- NOTE | 2016-08-07 17:48 | NUR ---
moaning and restless, c/o pain, unable to scale- medicated width morphine 1 mg iv as prn, BP 148/ 76 HR 75- will continue to monitor
[2016-08-07] MEDS: IV D5/ 0.9% NACL 1,000 ML IV PRN (17:49)
--- NOTE | 2016-08-07 18:00 | NUR ---
T 100.1- cooling measures done, will continue to monitor
[2016-08-07] MEDS: FIBERSOURCE HN 1000ML LIQUID GT PRN (18:40)
--- NOTE | 2016-08-07 18:45 | NUR ---
Fibersource HN started via PEG at 25ml/hr, no bleeding noted on site, head of bed elevated, temp rechecked 99.5, daughter at bedside, on continuos pulse oximetry at 94%, all needs attended and met, no distress noted Addendum: 08/07/16 at 1901 by ANA MARIA COPELAND RN repositioned q 2h with heels offloaded with pillows, no redness noted on heels and sacrum, kept clean and dry at all times
--- NOTE | 2016-08-07 19:30 | NUR ---
PATIENT ALERT,LETHARGY TEMP 98.1,BP 147/76,PULSE OXY AT BEDSIDE SPO2 94%,HR 72 BPM,SR ON MONITOR,TOLERATED TUBE FEEDING AT 25 ML/HR,CONTINUE CLOSELY MONITOR.
[2016-08-07] MEDS: LACTOBACILLUS RHAMNOSUS GG 1 EACH CAPSULE GT SCH (21:02)
[2016-08-07] MEDS: VALPROIC ACID 250 MG/5 ML LIQUID UDC GT SCH (21:02)
--- NOTE | 2016-08-07 22:05 | NUR ---
HR 120'S A FIB SUSTAINED, METOPROLOL 5 MG IV GIVEN , AND TEMP 100.1TYLENOL 650 MG GIVEN FOR FEVER ,COOLING MEASURE PROVIDED,TURN REPOSITION Q 2H,INCONTINENT CARE,Z GUARD PASTE APPLY FOR SKIN PROTECTION.
[2016-08-08 00:07] VITALS: BP 143/80
--- NOTE | 2016-08-08 00:40 | NUR ---
temp 98.1, patient asleep .no acute distress,increase g tube feeding to 35 ml/hr,residual check 5 ml.
[2016-08-08] MEDS: PIPERACILLIN/TAZOBACTAM/D5W 2.25 G in PREMIXED 1 EACH IV SCH ×4 (02:12→21:47)
[2016-08-08] MEDS: ALBUTEROL SULFATE 2.5 MG/3 ML NEBU NEB SCH ×6 (02:33→22:44)
[2016-08-08] MEDS: IPRATROPIUM BROMIDE 0.5 MG/2.5 ML NEBU NEB SCH ×6 (02:33→22:44)
[2016-08-08 04:00] VITALS: BP 128/87
--- NOTE | 2016-08-08 06:17 | NUR ---
PATIENT TOLERATED TUBE FEEDING FAIR, RESIDUAL 10 ML,INCREASE TO 45 ML/HR, GOAL MET,HOB ELEVATED AT ALL TIMES,SR/A- FIB ON MONITOR,BP STABLE,STILL WITH LOW FEVER,TURN AND REPOSITION,SKIN CARE PROVIDED, NEEDS ATTENDED.
[2016-08-08] MEDS: MORPHINE SULFATE 2 MG/1 ML DISP.SYRIN IV PRN ×2 (06:55→16:20)
--- NOTE | 2016-08-08 07:15 | NUR ---
Received report from ESTHELA Barlow
--- NOTE | 2016-08-08 07:30 | NUR ---
RECEIVED PATIENT SLEEPING WITH NO SIGNS OF DISTRESS, RN NICU AT BEDSIDE. V/S STABLE. 4 L OF O2 VIA NASAL CANNULA. SHE IS ON A CONTINUOUS PULSE OX MONITOR DESAT BETWEEN 93-95. PATIENT IS ON AMIODARONE DRIP 0.5 MG/MIN TELE BETWEEN SINUS AND AFIB. PATIENT REMAINS NPO. TOLERATING GT FEEDING AT 45 ML/HR. CHECK RESIDUAL, NONE OBTAINED. HOB ELEVATED AT ALL TIMES. ASPIRATIONS PRECAUTIONS OBSERVED. FEET OFF LOADED AT TIMES WITH PILLOWS. ALL NEEDS MET.
[2016-08-08 07:39] LABS: BASOPHILS % (AUTO) 0.1 % (0.0-2.0); EOSINOPHILS % (AUTO) 0.2 % (0.0-7.0); HEMATOCRIT 28.8 % (37-47); LYMPHOCYTES # (AUTO) 1.9 K/UL (0.8-4.8); LYMPHOCYTES % (AUTO) 10.3 % (20.5-51.5); MEAN CORPUSCULAR HEMOGLOBIN 31.9 UUG (27.0-31.0); MEAN CORPUSCULAR HGB CONC 35 g/dL (32.0-37.0); MEAN CORPUSCULAR VOLUME 91.7 FL (81.0-99.0); MONOCYTES # (AUTO) 1.8 K/UL (0.1-1.30); MONOCYTES % (AUTO) 9.7 % (0.0-11.0); NEUTROPHILS # (AUTO) 14.7 K/UL (1.8-8.9); NEUTROPHILS % (AUTO) 79.7 % (38.5-71.5); PLATELET COUNT (AUTO) 185 K/UL (150-450); RED BLOOD CELL COUNT(AUTO) 3.14 MIL/UL (4.2-5.4); WHITE BLOOD COUNT (AUTO) 18.4 K/UL (4.0-11.2)
[2016-08-08 07:40] VITALS: BP 138/74
[2016-08-08 07:45] LABS: POTASSIUM 3.9 mmol/L (3.5-5.1)
[2016-08-08 07:47] LABS: CREATININE 1.5 mg/dL (0.6-1.3)
[2016-08-08] MEDS: CARBIDOPA/LEVODOPA 25-100MG TABLET GT SCH ×3 (08:31→17:17)
[2016-08-08] MEDS: OXYBUTYNIN CHLORIDE 5 MG TABLET GT SCH ×2 (08:31→17:17)
[2016-08-08] MEDS: LACTOBACILLUS RHAMNOSUS GG 1 EACH CAPSULE GT SCH ×2 (08:31→21:47)
[2016-08-08] MEDS: DONEPEZIL 10 MG TABLET GT SCH (08:31)
[2016-08-08] MEDS: PANTOPRAZOLE SODIUM 40 MG VIAL IV SCH (08:32)
[2016-08-08 08:45] LABS: BAND % (MANUAL) 3 % (0-10); EOSINOPHILS % (MANUAL) 1 % (0-8); LYMPHOCYTES % (MANUAL) 16 % (20-40); METAMYELOCYTES % 1 % (0-1); MONOCYTES % (MANUAL) 9 % (2-10); MYELOCYTES % 3 % (0-0); NEUTROPHILS % (MANUAL) 67 % (42-75)
[2016-08-08] MEDS: VANCOMYCIN IV 750 MG in IV DEXTROSE 5% 250 ML IV SCH (09:34)
[2016-08-08] MEDS: AMIODARONE HCL IV 900 MG in IV DEXTROSE 5% 482 ML IV PRN (09:41)
--- NOTE | 2016-08-08 10:55 | NUR ---
seen by Dr Jenkins with orders- amiodarone drip d/cd and will be started on amiodarone via GT, tele SR with aflutter but non sustained, asyptomatic, vs wnl, no bleeding noted, tolerating tube fdg well, no residual, safety measures maintained, personal care tech at bedside
--- NOTE | 2016-08-08 11:13 | NUR ---
Clinical pharmacy note-Vancomycin dosing per pharmacy Subjective: To continue Vancomycin dosing on this patient for pneumonia Objective: BUN 26 Scr 1.5 WBC 18.4 Temp 99.8 Assessment/Plan: Vancomycin 750mg IV every 36hrs to continue (3rd dose was due today at 1000) and draw trough by 4th dose(not ordered yet) for expected trough around 16. Will monitor renal function closely to adjust the dose if needed. Will follow daily.
[2016-08-08 11:24] VITALS: BP 135/53
--- NOTE | 2016-08-08 11:30 | NUR ---
seen by Dr Kim with orders
[2016-08-08] MEDS: METOPROLOL TARTRATE 25 MG TABLET PO SCH ×2 (11:40→21:48)
[2016-08-08] MEDS: AMIODARONE HCL 200 MG TABLET PO SCH ×2 (11:40→21:48)
--- NOTE | 2016-08-08 13:15 | NUR ---
seen by PT- see notes
[2016-08-08] MEDS: IV D5/ 0.9% NACL 1,000 ML IV PRN (13:29)
--- NOTE | 2016-08-08 14:20 | NUR ---
resting in bed, alert, answers simple questions, moaning and states has pain in her abdomen- medicated with IV morphine 1 mg as prn, no bleeding noted, GT site clean and dry with dsg, repositioned q2h with heels off loaded with pillows, no redness noted on both heels, some dependent edema noted on both upper extremities, kept elevated on pillows.
[2016-08-08 15:31] VITALS: BP 132/67
[2016-08-08] MEDS: FIBERSOURCE HN 1000ML LIQUID GT PRN (16:33)
--- NOTE | 2016-08-08 18:44 | NUR ---
PATIENT IS SLEEPING WITH NO SIGNS OF DISTRESS, TELE NS RHYTHM, PATIENT TOLERATING FEEDING AT 45 ML/HR. HOB ELEVATED AT ALL TIMES WITH BILATERAL FEET OFF LOADED WITH PILLOWS. DVT PUMP IN PLACE. DENIES PAIN AT THIS TIME. ALL NEEDS MET. CAREGIVER AT BEDSIDE.
[2016-08-08 20:00] VITALS: BP 137/61
--- NOTE | 2016-08-08 20:00 | NUR ---
Seen patient asleep, with CG at the bedside, head to toe assessment done. Pt positive for crackles anterior and posterior lungs, currently receiving breathing treatment. Upper and lower extremeties traces of edema. Right upper arm is reddened and swollen, took a picture, traced.Charly lower extremeties (feet)traces of edema noted). GT feeding [employer] running at 45mls/hr, 5mls residuals.Turned and repositioned, applied z-guard to sacral area.Continue skin care protocol.
[2016-08-08] MEDS: VALPROIC ACID 250 MG/5 ML LIQUID UDC GT SCH (21:48)
[2016-08-09] VITALS: BP 141/62
[2016-08-09] MEDS: ONDANSETRON 4 MG/2 ML VIAL IV PRN (01:46)
[2016-08-09] MEDS: MORPHINE SULFATE 2 MG/1 ML DISP.SYRIN IV PRN (01:46)
[2016-08-09] MEDS: PIPERACILLIN/TAZOBACTAM/D5W 2.25 G in PREMIXED 1 EACH IV SCH ×4 (01:47→21:23)
[2016-08-09] MEDS: ALBUTEROL SULFATE 2.5 MG/3 ML NEBU NEB SCH ×6 (03:05→23:16)
[2016-08-09] MEDS: IPRATROPIUM BROMIDE 0.5 MG/2.5 ML NEBU NEB SCH ×6 (03:05→23:16)
[2016-08-09 04:00] VITALS: BP 120/60
--- NOTE | 2016-08-09 07:00 | NUR ---
Pt intermittently asleep during the shift. CG remained at the bedside. Morphine give around 130am 1mg/IVP with zofran 4mg/IV. Pt moans intermittently, per CG pt is coherent, remained alert to self. Answers appropriately at times only, still confused for the most part. Turned and repositioned, continue skin care protocol. Tele: NSR, remained on Amiodarone 400 mg/po via G-tube.BM loose, send stool for OB. Continue on IV antibiotics. New IV line inserted at left FA 22g, all previous peripheral/saline lock discontinued due to redness and infiltration. Right arm remained swollen and reddened (pt received amiodarone drip on that side).Elevated with pillows. Changed incontinent pads twice during shift, barely soaked, had 1 loose BM.Performed range of motion to left arm, applied blanket in between forearm and upper arm, encouraged CG to perform passive range of motions, verbalized understanding.Endorsed to ESTHELA Gordon
[2016-08-09 07:15] LABS: CREATININE 1.3 mg/dL (0.6-1.3); MAGNESIUM 1.8 mg/dL (1.8-2.4); PHOSPHOROUS 2.2 mg/dL (2.5-4.9); POTASSIUM 3.9 mmol/L (3.5-5.1)
[2016-08-09 07:40] VITALS: BP 148/64
[2016-08-09 07:55] LABS: BASOPHILS % (AUTO) 0.1 % (0.0-2.0); EOSINOPHILS # (AUTO) 0.1 K/uL (0.0-0.7); EOSINOPHILS % (AUTO) 0.4 % (0.0-7.0); HEMATOCRIT 27.6 % (37-47); HEMOGLOBIN 9.7 G/DL (12.0-16.0); LYMPHOCYTES % (AUTO) 9.5 % (20.5-51.5); MEAN CORPUSCULAR HGB CONC 35 g/dL (32.0-37.0); MEAN CORPUSCULAR VOLUME 93.6 FL (81.0-99.0); MONOCYTES # (AUTO) 3.7 K/UL (0.1-1.30); MONOCYTES % (AUTO) 17.3 % (0.0-11.0); NEUTROPHILS # (AUTO) 15.5 K/UL (1.8-8.9); NEUTROPHILS % (AUTO) 72.7 % (38.5-71.5); PLATELET COUNT (AUTO) 197 K/UL (150-450); RED BLOOD CELL COUNT(AUTO) 2.95 MIL/UL (4.2-5.4)
--- NOTE | 2016-08-09 08:00 | NUR ---
Awake, confused, intermittently moaning. O2 at 2L/NC. IVF infusing to LFA. GTube feedings at 45 ml/hr. Warm to touch, temp 100.2, will give Tylenol
[2016-08-09 08:08] LABS: WHITE BLOOD COUNT (AUTO) 21.3 K/UL (4.0-11.2)
[2016-08-09 09:02] LABS: BAND % (MANUAL) 7 % (0-10); EOSINOPHILS % (MANUAL) 1 % (0-8); LYMPHOCYTES % (MANUAL) 3 % (20-40); MONOCYTES % (MANUAL) 20 % (2-10); MYELOCYTES % 1 % (0-0); NEUTROPHILS % (MANUAL) 68 % (42-75)
[2016-08-09] MEDS: PANTOPRAZOLE SODIUM 40 MG VIAL IV SCH (09:26)
[2016-08-09] MEDS: AMIODARONE HCL 200 MG TABLET PO SCH ×2 (09:27→21:24)
[2016-08-09] MEDS: LACTOBACILLUS RHAMNOSUS GG 1 EACH CAPSULE GT SCH ×2 (09:27→21:23)
[2016-08-09] MEDS: CARBIDOPA/LEVODOPA 25-100MG TABLET GT SCH ×3 (09:27→17:53)
[2016-08-09] MEDS: DONEPEZIL 10 MG TABLET GT SCH (09:28)
[2016-08-09] MEDS: ACETAMINOPHEN 650 MG SUPP.RECT RC PRN ×2 (09:29→21:24)
[2016-08-09] MEDS: METOPROLOL TARTRATE 25 MG TABLET PO SCH ×3 (09:30→22:56)
[2016-08-09] MEDS: OXYBUTYNIN CHLORIDE 5 MG TABLET GT SCH ×2 (09:35→17:54)
[2016-08-09] MEDS ORDERED: NEUTRA PHOS PACKET GT ONE (11:00)
--- NOTE | 2016-08-09 11:00 | NUR ---
ELEVATED WBC, ELEVATED TEMP. DR. JAIME SPOKE WITH SON. DISCUSSED CONDITION AND PLAN OF CARE. U/A C&S SENT WITH IN AND OUT CATH. CXR DONE, REDDENED RIGHT ARM, DOPPLER DONE.
[2016-08-09 11:14] LABS: A/G RATIO 1.2 (0.7-1.7); ALBUMIN 3.2 g/dL (2.9-4.4); ALPHA-1-GLOBULIN 0.5 g/dL (0.0-0.4); ALPHA-2-GLOBULIN 0.8 g/dL (0.4-1.0); BETA GLOBULIN 0.6 g/dL (0.7-1.3); GAMMA GLOBULIN 0.8 g/dL (0.4-1.8); GLOBULIN, TOTAL 2.7 g/dL (2.2-3.9); M-SPIKE Not Observed g/dL (Not Observed)
[2016-08-09 11:32] LABS: *OCCULT BLOOD STOOL NEGATIVE (NEGATIVE)
[2016-08-09 11:37] VITALS: BP 125/66
--- NOTE | 2016-08-09 11:45 | NUR ---
Clinical pharmacy note-Vancomycin dosing per pharmacy Subjective: To continue Vancomycin dosing on this patient for pneumonia Objective: BUN 27 Scr 1.3 WBC 21.3 Temp 100.2 Assessment/Plan: Vancomycin 750mg IV every 36hrs to continue for today. Plan to draw trough by 4th dose(ordered for today at 2130-RN has been informed to hold 2200 dose if vanco trough is above 20 mcg/ml. Pharmacy shall review vancomycin trough in am & adjust the dose if needed. Will follow daily.
--- NOTE | 2016-08-09 14:00 | NUR ---
NOTED SECOND TIME LOOSE STOOL. INCONTINENCE CARE DONE. OUT OF BED WITH PT, AMBULATED ONLY UP TO THE DOOR.
[2016-08-09 15:30] VITALS: BP 141/69
[2016-08-09 16:24] LABS: *BILIRUBIN,URIN NEGATIVE (NEGATIVE); *BLOOD, URINE 1+ (NEGATIVE); *CLARITY,URINE CLEAR (CLEAR); *COLOR,URINE YELLOW (YELLOW); *KETONES,URINE NEGATIVE (NEGATIVE); *PROTEIN,URINE 2+ (NEGATIVE); *UROBILINOGEN,URINE 0.2 E.U./dl (NORMAL); LEUKOCYTE ESTERASE ,URINE NEGATIVE (NEGATIVE); NITRITE, URINE NEGATIVE (NEGATIVE); PH,URINE 5.5 (5.0-8.0); UGLUCOSE NEGATIVE (NEGATIVE)
[2016-08-09 16:57] LABS: BACTERIA,URINE NONE SEEN /HPF (NONE SEEN); RBC,URINE 0-3 /HPF (0-3); SQUAMOUS EPITHELIAL CELL,UR FEW /HPF (NONE SEEN); WBC,URINE 0-3 /HPF (0-3)
[2016-08-09] MEDS: FIBERSOURCE HN 1000ML LIQUID GT PRN (17:58)
[2016-08-09 19:00] VITALS: BP 159/90
--- NOTE | 2016-08-09 19:02 | NUR ---
IN AND OUT OF AFIB AND SINUS RHYTHM THROUGH OUT THE SHIFT. ORDERS OF METOPROLOL FROM HEALTH AND SAFETY MANAGER STARTED, NOTED SLIGHT DECREASE IN HEART RATE. ENDORSE FOR FURTHER CARE AND FOLLOW UP. THORACENTESIS SCHEDULED FOR TOMORROW. CONSENT STILL NEED TO BE DONE.
--- NOTE | 2016-08-09 19:20 | NUR ---
nsg: pt received awake but confused. no acute distress noted. on 2L O2 via nc saturating at 94%, on cont pulse ox. tele, in and out of SR/afib. tolerating TF well, no residual. hob elevated 45 degrees. on 1st step mattress. private caregiver at the bedside.
[2016-08-09] MEDS: VALPROIC ACID 250 MG/5 ML LIQUID UDC GT SCH (21:23)
[2016-08-09] MEDS: FUROSEMIDE 20 MG/2 ML VIAL IV SCH (21:24)
[2016-08-09] MEDS: Z GUARD REMEDY PASTE 57 GM TUBE TOP PRN (21:24)
[2016-08-09] MEDS: VANCOMYCIN IV 750 MG in IV DEXTROSE 5% 250 ML IV SCH (22:21)
[2016-08-10] VITALS (8 sets, daily range): BP systolic 103–144; BP diastolic 57–82
--- NOTE | 2016-08-10 | NUR ---
nsg: no change in condition.
[2016-08-10] MEDS: PIPERACILLIN/TAZOBACTAM/D5W 2.25 G in PREMIXED 1 EACH IV SCH ×4 (01:48→19:58)
[2016-08-10] MEDS: METOPROLOL TARTRATE 25 MG TABLET PO SCH ×3 (06:00→21:46)
--- NOTE | 2016-08-10 06:00 | NUR ---
nsg: all needs attended. kept clean and dry. tele, SB with hr 53. TF off, thoracentesis this am.
--- NOTE | 2016-08-10 06:21 | NUR ---
NSG: LOPRESSOR NOT GIVEN, HR 53, SB
[2016-08-10] MEDS: IPRATROPIUM BROMIDE 0.5 MG/2.5 ML NEBU NEB SCH ×6 (07:11→22:37)
[2016-08-10] MEDS: ALBUTEROL SULFATE 2.5 MG/3 ML NEBU NEB SCH ×6 (07:11→22:37)
--- NOTE | 2016-08-10 08:00 | NUR ---
AWAKE ALERT WITH CONTINUOUS MOANING AND FACIAL GRIMACING ACCOMPANIED BY SHAKING, WILL MEDICATE WITH PRN MEDS. NO SIGNS OF DISTRESS ON 4L NC SATURATING 93-95%. CONTINUE WITH REMI MONITORING RHYTHM GOES TO SB/SR/AFIB CONTROLLED AND UNCONTROLLED. CLOSELY MONITORED. SON MORIAH CALLED GAVE PHONE CONSENT FOR THORACENTESIS.
[2016-08-10] MEDS: FUROSEMIDE 20 MG/2 ML VIAL IV SCH (08:32)
[2016-08-10] MEDS: LACTOBACILLUS RHAMNOSUS GG 1 EACH CAPSULE GT SCH ×2 (08:32→20:38)
[2016-08-10] MEDS: OXYBUTYNIN CHLORIDE 5 MG TABLET GT SCH ×2 (08:32→16:01)
[2016-08-10] MEDS: DONEPEZIL 10 MG TABLET GT SCH (08:32)
[2016-08-10] MEDS: AMIODARONE HCL 200 MG TABLET PO SCH ×2 (08:32→20:40)
[2016-08-10] MEDS: PANTOPRAZOLE ORAL SUSPENSION 40 MG SUSPDR.PKT GT SCH (08:33)
[2016-08-10] MEDS: HYDROCODONE/APAP 5-325MG TABLET GT PRN ×2 (08:33→20:46)
[2016-08-10] MEDS: CARBIDOPA/LEVODOPA 25-100MG TABLET GT SCH ×3 (08:33→16:01)
--- NOTE | 2016-08-10 09:45 | NUR ---
SON IN SPOKE WITH DR JAIME ABOUT THORACENTESIS, CONSENT SIGNED
[2016-08-10 10:27] LABS: BASOPHILS % (AUTO) 0.2 % (0.0-2.0); EOSINOPHILS # (AUTO) 0.1 K/uL (0.0-0.7); EOSINOPHILS % (AUTO) 0.6 % (0.0-7.0); HEMATOCRIT 27.9 % (37-47); HEMOGLOBIN 9.6 G/DL (12.0-16.0); MEAN CORPUSCULAR HEMOGLOBIN 30.6 UUG (27.0-31.0); MEAN CORPUSCULAR HGB CONC 34 g/dL (32.0-37.0); MONOCYTES # (AUTO) 3.1 K/UL (0.1-1.30); MONOCYTES % (AUTO) 16.7 % (0.0-11.0); NEUTROPHILS # (AUTO) 13.3 K/UL (1.8-8.9); NEUTROPHILS % (AUTO) 71.5 % (38.5-71.5); PLATELET COUNT (AUTO) 192 K/UL (150-450); RED BLOOD CELL COUNT(AUTO) 3.13 MIL/UL (4.2-5.4); WHITE BLOOD COUNT (AUTO) 18.5 K/UL (4.0-11.2)
[2016-08-10 10:38] LABS: BAND % (MANUAL) 3 % (0-10); EOSINOPHILS % (MANUAL) 1 % (0-8); LYMPHOCYTES % (MANUAL) 9 % (20-40); MONOCYTES % (MANUAL) 17 % (2-10); NEUTROPHILS % (MANUAL) 70 % (42-75)
[2016-08-10 10:42] LABS: ALANINE AMINOTRANSFERASE 7 U/L (14-59); ALKALINE PHOSPHATASE 53 U/L (50-136); ASPARTATE AMINOTRANSFERASE 42 U/L (15-37); BILIRUBIN,TOTAL 0.8 mg/dL (0.2-1.0); CARBON DIOXIDE 30 mmol/L (21-32); CHLORIDE 109 mmol/L (98-107); CREATININE 1.4 mg/dL (0.6-1.3); GLUCOSE 124 mg/dL (74-106); MAGNESIUM 1.9 mg/dL (1.8-2.4); PHOSPHOROUS 3.7 mg/dL (2.5-4.9); POTASSIUM 3.8 mmol/L (3.5-5.1); TOTAL PROTEIN, SERUM 5.5 g/dL (6.4-8.2); UREA NITROGEN, BLOOD 25 mg/dL (7-18)
--- NOTE | 2016-08-10 11:38 | NUR ---
SEEN BY DR TREVINO /SHARONDA JAIME WITH ORDERS
--- NOTE | 2016-08-10 14:39 | NUR ---
CONTINUE IV ANTIOBIOTICS ORDERED, NO REACTION NOTED
--- NOTE | 2016-08-10 14:55 | NUR ---
Clinical pharmacy note-Vancomycin dosing per pharmacy Subjective: To continue Vancomycin dosing on this patient for pneumonia Objective: BUN 25 Scr 1.4 WBC 18.5 Temp 99.9 Vancomycin trough 4.8 last night at 2130 Assessment/Plan: Since Vancomycin trough is under the therapeutic range, will change dose to Vancomycin 750mg IV every 19hrs ,but prior to dose will check Vancomycin trough again at 1630(18.5 hrs post last night dose) to ensure proper dosing. If level is under 20, will continue dose every 19hrs. Will monitor renal function closely to adjust the dose if needed. Will follow daily. Addendum: 08/10/16 at 1731 by JEAN PIERRE NEWMAN VANCOMYCIN TROUGH 10.1(19 HRS POST LAST DOSE). WILL CONTINUE WITH NEW DOSING OF 750MG Q19HRS.
[2016-08-10] MEDS: ACETAMINOPHEN 650 MG SUPP.RECT RC PRN (16:01)
--- NOTE | 2016-08-10 16:30 | NUR ---
THORACENTESIS DONE AT BEDSIDE UNDER LOCAL ANESTHESIA BY RADIOLOGIST ON DUTY. PATIENT TOLERATED WELL. CHEST X-RAY DONE POST THORACENTESIS, AWAITING FOR RESULTS
[2016-08-10] MEDS ORDERED: VANCOMYCIN IV 750 MG in IV DEXTROSE 5% 250 ML IV SCH (17:00)
--- NOTE | 2016-08-10 17:23 | NUR ---
SPECIMEN SENT DOWN FOR CYTOLOGY 950 ML
[2016-08-10] MEDS: FIBERSOURCE HN 1000ML LIQUID GT PRN (17:51)
--- NOTE | 2016-08-10 18:39 | NUR ---
VS STABLE NO SIGNS OF DISTRESS POST THORACENTESIS, CXR REVEALED NO PNEUMOTHORAX. AFEBRILE
--- NOTE | 2016-08-10 19:10 | NUR ---
Received report from ESTHELA Wood
--- NOTE | 2016-08-10 19:30 | NUR ---
Resting quietly on bed during initial rounds. No s/s of pain/discomforts noted. HOB elevated, saturating 97% at this time with 5L via NC. GT feeding continuos at 45 cc/hour via Enteral pump. No gastric residual obtained at this time. Caregiver at bedside. Maintained and observed contact isolation as ordered. Continue care as planned.
[2016-08-10] MEDS: VALPROIC ACID 250 MG/5 ML LIQUID UDC GT SCH (20:38)
--- NOTE | 2016-08-10 20:50 | NUR ---
[place] given for continuos moaning and grimacing. Will monitor.
[2016-08-11] VITALS (8 sets, daily range): BP systolic 109–148; BP diastolic 50–68
[2016-08-11] MEDS: FIBERSOURCE HN 1000ML LIQUID GT PRN (00:47)
[2016-08-11] MEDS: PIPERACILLIN/TAZOBACTAM/D5W 2.25 G in PREMIXED 1 EACH IV SCH ×4 (01:12→20:04)
[2016-08-11] MEDS: IPRATROPIUM BROMIDE 0.5 MG/2.5 ML NEBU NEB SCH ×6 (02:35→23:27)
[2016-08-11] MEDS: ALBUTEROL SULFATE 2.5 MG/3 ML NEBU NEB SCH ×6 (02:35→23:27)
[2016-08-11] MEDS: HYDROCODONE/APAP 5-325MG TABLET GT PRN ×3 (03:36→22:53)
[2016-08-11] MEDS: METOPROLOL TARTRATE 25 MG TABLET PO SCH ×3 (05:37→22:52)
--- NOTE | 2016-08-11 06:23 | NUR ---
VSS. Medicated 3x for pain with relief. Made comfortable at all times. In and out Afib, some flutters, PVC's but mostly SR to SB on the 50's. Continue care as planned.
--- NOTE | 2016-08-11 08:00 | NUR ---
asleep on rounds but easily aroused, looks comfortable, head of bed elevated, Tele SB 50, on 3l/nc, tube fdg at 45ml/hr- checked residual -none noted, aspiration precaution observed, repositioned with heels off loaded with pillows, personal insurance advisor at bedside.
[2016-08-11 08:25] LABS: BASOPHILS % (AUTO) 0.2 % (0.0-2.0); EOSINOPHILS # (AUTO) 0.1 K/uL (0.0-0.7); EOSINOPHILS % (AUTO) 0.5 % (0.0-7.0); HEMATOCRIT 27.4 % (37-47); HEMOGLOBIN 9.4 G/DL (12.0-16.0); LYMPHOCYTES # (AUTO) 2.3 K/UL (0.8-4.8); LYMPHOCYTES % (AUTO) 11.1 % (20.5-51.5); MEAN CORPUSCULAR HEMOGLOBIN 30.7 UUG (27.0-31.0); MEAN CORPUSCULAR HGB CONC 34 g/dL (32.0-37.0); MEAN CORPUSCULAR VOLUME 89.6 FL (81.0-99.0); MONOCYTES # (AUTO) 2.9 K/UL (0.1-1.30); MONOCYTES % (AUTO) 14.1 % (0.0-11.0); NEUTROPHILS # (AUTO) 15.2 K/UL (1.8-8.9); NEUTROPHILS % (AUTO) 74.1 % (38.5-71.5); PLATELET COUNT (AUTO) 241 K/UL (150-450); RED BLOOD CELL COUNT(AUTO) 3.06 MIL/UL (4.2-5.4); WHITE BLOOD COUNT (AUTO) 20.5 K/UL (4.0-11.2)
[2016-08-11 08:42] LABS: CARBON DIOXIDE 30 mmol/L (21-32); CHLORIDE 107 mmol/L (98-107); CREATININE 1.5 mg/dL (0.6-1.3); GLUCOSE 120 mg/dL (74-106); MAGNESIUM 2.1 mg/dL (1.8-2.4); PHOSPHOROUS 3.8 mg/dL (2.5-4.9); POTASSIUM 4.4 mmol/L (3.5-5.1); UREA NITROGEN, BLOOD 28 mg/dL (7-18)
[2016-08-11] MEDS: AMIODARONE HCL 200 MG TABLET PO SCH ×2 (09:00→20:05)
[2016-08-11] MEDS: CARBIDOPA/LEVODOPA 25-100MG TABLET GT SCH ×3 (09:04→16:31)
[2016-08-11] MEDS: LACTOBACILLUS RHAMNOSUS GG 1 EACH CAPSULE GT SCH ×2 (09:04→20:04)
[2016-08-11] MEDS: OXYBUTYNIN CHLORIDE 5 MG TABLET GT SCH ×2 (09:04→16:31)
[2016-08-11] MEDS: PANTOPRAZOLE ORAL SUSPENSION 40 MG SUSPDR.PKT GT SCH (09:05)
[2016-08-11] MEDS: FUROSEMIDE 20 MG TABLET PO SCH (09:05)
[2016-08-11] MEDS: DONEPEZIL 10 MG TABLET GT SCH (09:06)
[2016-08-11 10:47] LABS: BAND % (MANUAL) 5 % (0-10); EOSINOPHILS % (MANUAL) 1 % (0-8); LYMPHOCYTES % (MANUAL) 8 % (20-40); MONOCYTES % (MANUAL) 13 % (2-10); NEUTROPHILS % (MANUAL) 73 % (42-75)
--- NOTE | 2016-08-11 10:47 | NUR ---
Clinical pharmacy note-Vancomycin dosing per pharmacy Subjective: To continue Vancomycin dosing on this patient for pneumonia Objective: BUN 28 Scr 1.5 WBC 20.5 Temp 99.4 Assessment/Plan: Since srcr is rising, will start dosing by fall off level. Plan to draw vancomycin random level today at 1600. Pharmacy shall further dose when the level is available for review. Will follow daily. Addendum: 08/11/16 at 1646 by OLGA NEWMAN vancomycin random level: 12.3 will give vancomycin 750mg IVPB x1 now Pharmacy shall review srcr in am & decide when to order next random level for further dosing
[2016-08-11] MEDS: ACETAMINOPHEN 650 MG SUPP.RECT RC PRN ×2 (11:20→20:05)
--- NOTE | 2016-08-11 11:20 | NUR ---
lara, temp 99. medicated with Tylenol 650 mg rectally
--- NOTE | 2016-08-11 13:20 | NUR ---
checked residual- 40 ml- tube fdg off at this time- will recheck in an hour, kept head of bed elevated, repositioned q 2h with heels off loaded with pillows, tele SB 59, denies of pain, seen by Dr Kim earlier- for US guided thoracentesis today. production support consultant at bedside
--- NOTE | 2016-08-11 13:45 | NUR ---
called selam Yin (DPOA) re thoracentesis of left lung- agreed to have it done- phone consent given
--- NOTE | 2016-08-11 14:30 | NUR ---
checked residual obtained- none noted, tube fdg resumed at 45ml/hr, spoke to Dr Rodríguez re pt had a pause about 1.5 seconds- asymptomatic- tle SR 64- okay to give Lopressor as ordered
--- NOTE | 2016-08-11 15:00 | NUR ---
US guided thoracentesis of the left lung done at bedside by radiologist- obtained 400ml of clear yellow pleural fluid- tolerated procedure well, specimen sent to lab, vs taken
--- NOTE | 2016-08-11 15:20 | NUR ---
radiologist spoke to selam Yin after procedure
--- NOTE | 2016-08-11 16:00 | NUR ---
downgraded to tele by Dr Rodríguez
--- NOTE | 2016-08-11 16:57 | NUR ---
to CT dept per bed for CT chest w/o contrast
[2016-08-11] MEDS ORDERED: VANCOMYCIN IV 1 G in PREMIXED 0 EACH IV ONE (17:00)
[2016-08-11] MEDS ORDERED: VANCOMYCIN IV 750 MG in IV DEXTROSE 5% 250 ML IV ONE (17:00)
--- NOTE | 2016-08-11 17:20 | NUR ---
back from CT scan.
--- NOTE | 2016-08-11 17:48 | NUR ---
resting in bed, no distress noted, on 3l/nc sat at 96%, tele, SR 68, had 1 liquid BM, unable to collect specimen-absorbed in diaper, all needs attended and met, checked residual for fdg- none noted, fdg infusing at 45 ml/hr, kept head of bed elevated, aspiration precautions observed, caregiver at bedside
--- NOTE | 2016-08-11 19:20 | NUR ---
NSG: PT RECEIVED RESTING IN BED, ASLEEP, AROUSABLE, JUST MOANS AND GROANS. LUNGS SOUND CLEAR TO AUSCULTATE. TELE, SR. TOLERATING TF WELL, NO RESIDUAL. HOB ELEVATED 45 DEGREES. LEFT ARM EDEMA PITTING EDEMA +3, CONTRACTED. RIGHT ARM WITH TRACE EDEMA. PRIVATE CAREGIVER AT THE BEDSIDE.
[2016-08-11] MEDS: FERROUS SULFATE 300 MG/5 ML LIQUID UDC GT SCH (20:04)
[2016-08-11] MEDS: VALPROIC ACID 250 MG/5 ML LIQUID UDC GT SCH (20:05)
[2016-08-11] MEDS: METRONIDAZOLE 500 MG TABLET PO SCH (22:53)
--- NOTE | 2016-08-12 | NUR ---
NSG: NO CHANGE IN CONDITION.
[2016-08-12] MEDS: PIPERACILLIN/TAZOBACTAM/D5W 2.25 G in PREMIXED 1 EACH IV SCH ×4 (01:53→20:02)
[2016-08-12] MEDS: ALBUTEROL SULFATE 2.5 MG/3 ML NEBU NEB SCH ×6 (02:41→23:36)
[2016-08-12] MEDS: IPRATROPIUM BROMIDE 0.5 MG/2.5 ML NEBU NEB SCH ×6 (02:41→23:36)
[2016-08-12 04:00] VITALS: BP 127/57
[2016-08-12] MEDS: METRONIDAZOLE 500 MG TABLET PO SCH ×3 (05:34→22:13)
[2016-08-12] MEDS: METOPROLOL TARTRATE 25 MG TABLET PO SCH ×3 (05:34→22:13)
[2016-08-12] MEDS: HYDROCODONE/APAP 5-325MG TABLET GT PRN ×2 (05:35→20:28)
--- NOTE | 2016-08-12 06:00 | NUR ---
NSG: ALL NEEDS ATTENDED. NO ACUTE DISTRESS NOTED. TELE, SB WITH HR 47. CONT TO MONITOR.
--- NOTE | 2016-08-12 08:00 | NUR ---
resting, no signs of pain or distress with 3l nc saturating 99%. continue with iv antibiotics as ordered.
[2016-08-12] MEDS: FERROUS SULFATE 300 MG/5 ML LIQUID UDC GT SCH ×2 (08:25→20:17)
[2016-08-12] MEDS: PANTOPRAZOLE ORAL SUSPENSION 40 MG SUSPDR.PKT GT SCH (08:26)
[2016-08-12] MEDS: DONEPEZIL 10 MG TABLET GT SCH (08:26)
[2016-08-12] MEDS: FUROSEMIDE 20 MG TABLET PO SCH (08:26)
[2016-08-12] MEDS: OXYBUTYNIN CHLORIDE 5 MG TABLET GT SCH ×2 (08:26→17:24)
[2016-08-12] MEDS: CARBIDOPA/LEVODOPA 25-100MG TABLET GT SCH ×3 (08:26→17:25)
[2016-08-12] MEDS: AMIODARONE HCL 200 MG TABLET PO SCH ×2 (08:28→20:18)
[2016-08-12] MEDS: LACTOBACILLUS RHAMNOSUS GG 1 EACH CAPSULE GT SCH ×2 (08:29→20:21)
[2016-08-12 09:07] LABS: BASOPHILS % (AUTO) 0.2 % (0.0-2.0); EOSINOPHILS # (AUTO) 0.1 K/uL (0.0-0.7)
[2016-08-12 09:08] LABS: EOSINOPHILS % (AUTO) 0.5 % (0.0-7.0); HEMATOCRIT 26.6 % (37-47); LYMPHOCYTES # (AUTO) 2.2 K/UL (0.8-4.8); LYMPHOCYTES % (AUTO) 11.9 % (20.5-51.5); MEAN CORPUSCULAR HEMOGLOBIN 29.8 UUG (27.0-31.0); MEAN CORPUSCULAR HGB CONC 34 g/dL (32.0-37.0); MEAN CORPUSCULAR VOLUME 88.3 FL (81.0-99.0); MONOCYTES # (AUTO) 2.8 K/UL (0.1-1.30); MONOCYTES % (AUTO) 14.9 % (0.0-11.0); NEUTROPHILS # (AUTO) 13.5 K/UL (1.8-8.9); NEUTROPHILS % (AUTO) 72.5 % (38.5-71.5); PLATELET COUNT (AUTO) 244 K/UL (150-450); RED BLOOD CELL COUNT(AUTO) 3.02 MIL/UL (4.2-5.4); WHITE BLOOD COUNT (AUTO) 18.6 K/UL (4.0-11.2)
[2016-08-12 09:41] LABS: CARBON DIOXIDE 32 mmol/L (21-32); CHLORIDE 105 mmol/L (98-107); CREATININE 1.4 mg/dL (0.6-1.3); GLUCOSE 137 mg/dL (74-106); LACTATE DEHYDROGENASE 327 U/L (81-234); MAGNESIUM 2.2 mg/dL (1.8-2.4); PHOSPHOROUS 3.6 mg/dL (2.5-4.9); POTASSIUM 4.3 mmol/L (3.5-5.1); UREA NITROGEN, BLOOD 30 mg/dL (7-18)
[2016-08-12 10:46] LABS: BAND % (MANUAL) 3 % (0-10); EOSINOPHILS % (MANUAL) 2 % (0-8); LYMPHOCYTES % (MANUAL) 12 % (20-40); MONOCYTES % (MANUAL) 17 % (2-10); NEUTROPHILS % (MANUAL) 66 % (42-75)
[2016-08-12 11:27] VITALS: BP 109/57
--- NOTE | 2016-08-12 12:30 | NUR ---
seen by dr guerra see notes
--- NOTE | 2016-08-12 13:35 | NUR ---
LOPRESSOR NOT GIVEN HR 52/MIN
--- NOTE | 2016-08-12 15:06 | NUR ---
seen by physical therapy see notes
[2016-08-12 15:18] VITALS: BP 129/55
--- NOTE | 2016-08-12 15:54 | NUR ---
Clinical pharmacy note-Vancomycin dosing per pharmacy Subjective: To continue Vancomycin dosing on this patient for pneumonia Objective: BUN 30 Scr 1.4 WBC 18.6 Temp 98.9 Assessment/Plan: Will continue dose by fall-off random level(level is on order today at 1600). Will follow the level for further dosing. If renal function gets stable, will consider scheduled dosing. Will monitor daily. Addendum: 08/12/16 at 1643 by JEAN PIERRE RAMIREZ ADM VANCOMYCIN RANDOM 12 AT 1600. WILL ADMINISTER 750MG IV X1 TODAY AND FOLLOW TH LAB FOR NEXT LEVEL.
[2016-08-12] MEDS ORDERED: VANCOMYCIN IV 750 MG in IV DEXTROSE 5% 250 ML IV ONE (17:30)
--- NOTE | 2016-08-12 18:46 | NUR ---
RUG DYER CAME IN SAID CONTINUE WITH CURRENT TX PLAN, AWAITING CULTURES. REMAINS SB ON MONITOR. AFEBRILE
--- NOTE | 2016-08-12 19:20 | NUR ---
Received report from ESTHELA Wood
--- NOTE | 2016-08-12 19:55 | NUR ---
Received patient with eyes closed but moaning. Unable to respond to question at this time. Sitter at bedside. No s/s of respiratory distress noted. Continue care as planned.
[2016-08-12 20:17] VITALS: BP 151/56
[2016-08-12] MEDS: VALPROIC ACID 250 MG/5 ML LIQUID UDC GT SCH (20:17)
[2016-08-12] MEDS: ACETAMINOPHEN 650 MG SUPP.RECT RC PRN (22:13)
[2016-08-13 00:05] VITALS: BP 119/59
[2016-08-13] MEDS: PIPERACILLIN/TAZOBACTAM/D5W 2.25 G in PREMIXED 1 EACH IV SCH ×4 (01:19→20:50)
[2016-08-13] MEDS: MORPHINE SULFATE 2 MG/1 ML DISP.SYRIN IV PRN (02:46)
[2016-08-13] MEDS: ALBUTEROL SULFATE 2.5 MG/3 ML NEBU NEB SCH ×5 (03:19→20:16)
[2016-08-13] MEDS: IPRATROPIUM BROMIDE 0.5 MG/2.5 ML NEBU NEB SCH ×5 (03:19→20:16)
[2016-08-13] MEDS: FIBERSOURCE HN 1000ML LIQUID GT PRN (03:49)
[2016-08-13 04:00] VITALS: BP 107/48
[2016-08-13] MEDS: METRONIDAZOLE 500 MG TABLET PO SCH ×3 (05:52→23:20)
[2016-08-13] MEDS: METOPROLOL TARTRATE 25 MG TABLET PO SCH ×3 (05:53→22:45)
--- NOTE | 2016-08-13 06:32 | NUR ---
Kept moaning, medicated for pain twice with help. Sitter remains at bedside. Cooling measures and Tylenol supp was given for elevated temp. Made comfortable at all times. Continue care as planned.
[2016-08-13 07:09] LABS: BASOPHILS % (AUTO) 0.2 % (0.0-2.0); EOSINOPHILS # (AUTO) 0.1 K/uL (0.0-0.7); EOSINOPHILS % (AUTO) 0.4 % (0.0-7.0); LYMPHOCYTES # (AUTO) 1.8 K/UL (0.8-4.8); LYMPHOCYTES % (AUTO) 10.8 % (20.5-51.5); MEAN CORPUSCULAR HEMOGLOBIN 30.5 UUG (27.0-31.0); MEAN CORPUSCULAR HGB CONC 34 g/dL (32.0-37.0); MEAN CORPUSCULAR VOLUME 88.8 FL (81.0-99.0); MONOCYTES # (AUTO) 2.6 K/UL (0.1-1.30); MONOCYTES % (AUTO) 15.8 % (0.0-11.0); NEUTROPHILS # (AUTO) 12.1 K/UL (1.8-8.9); NEUTROPHILS % (AUTO) 72.8 % (38.5-71.5); PLATELET COUNT (AUTO) 208 K/UL (150-450); WHITE BLOOD COUNT (AUTO) 16.6 K/UL (4.0-11.2)
[2016-08-13 07:13] LABS: HEMATOCRIT 23.8 % (37-47); HEMOGLOBIN 8.2 G/DL (12.0-16.0); RED BLOOD CELL COUNT(AUTO) 2.68 MIL/UL (4.2-5.4)
[2016-08-13 07:14] LABS: CARBON DIOXIDE 32 mmol/L (21-32); CHLORIDE 104 mmol/L (98-107); CREATININE 1.5 mg/dL (0.6-1.3); GLUCOSE 177 mg/dL (74-106); MAGNESIUM 2.2 mg/dL (1.8-2.4); PHOSPHOROUS 3.2 mg/dL (2.5-4.9); POTASSIUM 3.7 mmol/L (3.5-5.1); UREA NITROGEN, BLOOD 32 mg/dL (7-18)
[2016-08-13] MEDS ORDERED: FUROSEMIDE 20 MG/2 ML VIAL IV ONE (07:30)
[2016-08-13] MEDS ORDERED: POTASSIUM CHLORIDE 20 MEQ POWDER PACKET GT ONE (07:30)
--- NOTE | 2016-08-13 08:00 | NUR ---
AWAKE CONFUSED FORGETFUL NO RESPIRATORY DISTRESS OR PAIN CONTINUE O2 AT 3L O2 SAT WAS 96% DENTAL LABORATORY TECHNOLOGY TEACHER AT BEDSIDE ON ASPIRATION /FALL PRECAUTION BED ALARM ON AND CALL BENÍTEZ IN REACH CONT GT FEEDING SIRISHA WELL NO N/V KEEP HOB UP AT ALL TIME
[2016-08-13] MEDS: FERROUS SULFATE 300 MG/5 ML LIQUID UDC GT SCH ×2 (08:43→20:50)
[2016-08-13] MEDS: LACTOBACILLUS RHAMNOSUS GG 1 EACH CAPSULE GT SCH ×2 (08:43→20:50)
[2016-08-13] MEDS: OXYBUTYNIN CHLORIDE 5 MG TABLET GT SCH ×2 (08:45→17:40)
[2016-08-13] MEDS: AMIODARONE HCL 200 MG TABLET PO SCH (08:46)
[2016-08-13] MEDS: CARBIDOPA/LEVODOPA 25-100MG TABLET GT SCH ×3 (08:46→17:40)
[2016-08-13] MEDS: Z GUARD REMEDY PASTE 57 GM TUBE TOP PRN (08:46)
[2016-08-13] MEDS: DONEPEZIL 10 MG TABLET GT SCH (08:46)
[2016-08-13] MEDS: PANTOPRAZOLE ORAL SUSPENSION 40 MG SUSPDR.PKT GT SCH (08:52)
[2016-08-13] MEDS: FUROSEMIDE 20 MG TABLET PO SCH (09:06)
--- NOTE | 2016-08-13 09:30 | NUR ---
Kaleb ROSENBERG LOSS PREVENTION OPERATIONS MANAGER FOR DR JAIME,T WAS HERE LAB RESULT THIS AM INFORM NO NEW ORDER STATE DR JAIME CONSULT DR ADAMS TO SEE HER TODAY
[2016-08-13 10:16] LABS: BAND % (MANUAL) 3 % (0-10); BASOPHILS % (MANUAL) 1 % (0-2); LYMPHOCYTES % (MANUAL) 8 % (20-40); METAMYELOCYTES % 1 % (0-1); MONOCYTES % (MANUAL) 14 % (2-10); MYELOCYTES % 1 % (0-0); NEUTROPHILS % (MANUAL) 72 % (42-75)
--- NOTE | 2016-08-13 11:00 | NUR ---
DR ADAMS WAS HERE AND SPEAK WITH HER SON AT BEDSIDE PLAN TO HAVE BONE MARROW BX TOMORROW AND LAB ORDER IN CHART
[2016-08-13 12:19] VITALS: BP 111/56
[2016-08-13] MEDS: HYDROCODONE/APAP 5-325MG TABLET GT PRN ×2 (13:15→20:50)
--- NOTE | 2016-08-13 15:22 | NUR ---
Clinical pharmacy note-Vancomycin dosing per pharmacy Subjective: To continue Vancomycin dosing on this patient for pneumonia Objective: BUN 32 Scr 1.5 WBC 16.6 Temp 99.4 Assessment/Plan: Since renal function is unstable, will continue dose by fall-off random level(level is on order today at 1500). Will follow the level for further dosing. If renal function is stabilized, will consider scheduled dosing. Will monitor daily. Addendum: 08/13/16 at 1603 by JEAN PIERRE NEWMAN VANCOMYCIN RANDOM LEVEL WAS 14.2 AT 1500 TODAY. WILL ADMINISTER 750MG IVPB X1 TODAY AND FOLLOW THE NEXT LEVEL(NOT ORDERED YET)
[2016-08-13 15:37] VITALS: BP 106/43
[2016-08-13] MEDS ORDERED: VANCOMYCIN IV 750 MG in IV DEXTROSE 5% 250 ML IV ONE (17:00)
--- NOTE | 2016-08-13 17:00 | NUR ---
REPOSITION Q2 HR RESTING AFTER MED PRN GIVEN TOOL DESIGN ENGINEER AT BEDSIDE NO SOB AT THIS TIME
[2016-08-13] MEDS: FUROSEMIDE 20 MG/2 ML VIAL IV SCH (17:41)
--- NOTE | 2016-08-13 18:00 | NUR ---
STABLE HEMODYNAMIC STATUS PAIN UNDER CONTROL AND NO RESPIRATORY DISTRESS SAFETY MEASURE PROVIDED BED ALARM ON AND CALL LIGHT WITHIN REACH HOB UP AT ALL TIME SIRISHA GT FEEDING WELL
[2016-08-13 19:00] VITALS: BP 120/49
--- NOTE | 2016-08-13 20:00 | NUR ---
PATIENT RECEIVED IN BED, PATIENT CONFUSED AND DISORIENTED. OBSERVED MOANING AT TIMES, PERSONAL HULL LINE CREW MEMBER STATES THAT IS PATIENT BASELINE. HULL LINE CREW MEMBER ASKED PATIENT IF SHE WAS IN PAIN, PT STATED "YES" BUT UNABLE TO SCORE. NOTED HEP LOCK TO RIGHT FOREARM, INTACT AND PATENT. PATIENT ALSO ON TELE MONITOR SHOWING SINUS RHYTHM 62. INCONTINENT OF URINE AND BOWEL, PATIENT CHANGED BY STAFF. BED IN LOW AND LOCKED POSITION. SAFETY MEASURES MAINTAINED.
[2016-08-13] MEDS: VALPROIC ACID 250 MG/5 ML LIQUID UDC GT SCH (20:50)
[2016-08-13 22:30] VITALS: BP 91/49
--- NOTE | 2016-08-13 23:37 | NUR ---
PATIENT NOT GIVEN METOPROLOL AT 2200 DUE TO DECREASED B/P 91/49, HEART RATE 61. REMAINS ON 2 LITERS VIA NASAL CANULA. NO S/S HYPOTENSION. PERSONAL TERMITE EXTERMINATOR HELPER AT PT BEDSIDE. WILL CONTINUE TO MONITOR FOR SAFETY.
--- NOTE | 2016-08-13 23:45 | NUR ---
PATIENT RESTING IN BED AT THIS TIME. GIVEN NORCO PRN ORDERED FOR PAIN, PT UNABLE TO SCORE PAIN. NO ACUTE DISTRESS NOTED. CAREGIVER AT BED SIDE.
[2016-08-14 00:23] VITALS: BP 110/44
[2016-08-14] MEDS: ALBUTEROL SULFATE 2.5 MG/3 ML NEBU NEB SCH ×7 (00:27→23:27)
[2016-08-14] MEDS: IPRATROPIUM BROMIDE 0.5 MG/2.5 ML NEBU NEB SCH ×7 (00:27→23:27)
[2016-08-14] MEDS: HYDROCODONE/APAP 5-325MG TABLET GT PRN ×3 (01:38→16:31)
[2016-08-14] MEDS: PIPERACILLIN/TAZOBACTAM/D5W 2.25 G in PREMIXED 1 EACH IV SCH ×4 (02:10→20:59)
--- NOTE | 2016-08-14 02:20 | NUR ---
PATIENT AWAKE AND CONTINUES TO MOAN, PT CHANGED BY STAFF AND CAREGIVER PT ALSO GIVEN NORCO PRN ORDERED. NO ACUTE DISTRESS NOTED. WILL CONTINUE TO MONITOR.
--- NOTE | 2016-08-14 02:32 | NUR ---
PATIENT CALM AND SLEEPING AT THIS TIME, BREATHING UNLABORED. CAREGIVER AT BEDSIDE.
[2016-08-14 04:00] VITALS: BP 94/54
[2016-08-14] MEDS: FIBERSOURCE HN 1000ML LIQUID GT PRN (05:07)
[2016-08-14] MEDS: METRONIDAZOLE 500 MG TABLET PO SCH ×2 (05:57→13:06)
[2016-08-14] MEDS: METOPROLOL TARTRATE 25 MG TABLET PO SCH ×3 (06:00→21:53)
--- NOTE | 2016-08-14 06:30 | NUR ---
PATIENT AWAKE AN SHOWING A-FIB FLUTTER 120'S, PT MOANING AT TIMES, PER SURGEON/PRESIDENT PT ABLE TO STATE SHE IS PAIN BUT UNABLE TO SCORE. PT GIVEN NORCO AND FLAGYL ORDERED. METOPROLOL NOT GIVEN THIS MORNING DUE TO B/P 94/54. RESIDUAL VIA G-TUBE WAS 30CC, FEEDING HELD AT THIS TIME, WILL NOTIFY MD. PT CHANGED AND TURNED BY STAFF. SURGEON/PRESIDENT AT BEDSIDE. SAFETY MEASURES MAINTAINED.
[2016-08-14 06:50] LABS: BASOPHILS % (AUTO) 0.2 % (0.0-2.0); EOSINOPHILS # (AUTO) 0.1 K/uL (0.0-0.7); EOSINOPHILS % (AUTO) 0.6 % (0.0-7.0); LYMPHOCYTES # (AUTO) 2.5 K/UL (0.8-4.8); LYMPHOCYTES % (AUTO) 11.1 % (20.5-51.5); MEAN CORPUSCULAR HEMOGLOBIN 30.6 UUG (27.0-31.0); MEAN CORPUSCULAR HGB CONC 34 g/dL (32.0-37.0); MEAN CORPUSCULAR VOLUME 90.6 FL (81.0-99.0); MONOCYTES # (AUTO) 3.3 K/UL (0.1-1.30); MONOCYTES % (AUTO) 14.4 % (0.0-11.0); NEUTROPHILS % (AUTO) 73.7 % (38.5-71.5)
[2016-08-14 07:04] LABS: RED BLOOD CELL COUNT(AUTO) 3.19 MIL/UL (4.2-5.4); WHITE BLOOD COUNT (AUTO) 22.9 K/UL (4.0-11.2)
[2016-08-14 07:05] LABS: HEMATOCRIT 28.9 % (37-47); HEMOGLOBIN 9.8 G/DL (12.0-16.0); PLATELET COUNT (AUTO) 324 K/UL (150-450)
[2016-08-14 07:10] LABS: CARBON DIOXIDE 31 mmol/L (21-32); CHLORIDE 99 mmol/L (98-107); CREATININE 1.7 mg/dL (0.6-1.3); GLUCOSE 115 mg/dL (74-106); MAGNESIUM 2.2 mg/dL (1.8-2.4); PHOSPHOROUS 3.7 mg/dL (2.5-4.9); POTASSIUM 4.2 mmol/L (3.5-5.1); UREA NITROGEN, BLOOD 31 mg/dL (7-18)
[2016-08-14] MEDS: ONDANSETRON 4 MG/2 ML VIAL IV PRN (07:50)
--- NOTE | 2016-08-14 08:00 | NUR ---
resting no sob continue o2 at 2l /min o2 sat was 95% rt given treatment this am nathaniel procedure well on fall ./aspiration precaution bed alarm ON AND CALL LIGHT IN REACH SENIOR NETWORK ARCHITECT AT BEDSIDE
[2016-08-14 08:31] LABS: BAND % (MANUAL) 4 % (0-10); LYMPHOCYTES % (MANUAL) 12 % (20-40); METAMYELOCYTES % 1 % (0-1); MONOCYTES % (MANUAL) 15 % (2-10); MYELOCYTES % 2 % (0-0); NEUTROPHILS % (MANUAL) 66 % (42-75)
[2016-08-14] MEDS: FUROSEMIDE 20 MG/2 ML VIAL IV SCH (08:34)
[2016-08-14] MEDS: FERROUS SULFATE 300 MG/5 ML LIQUID UDC GT SCH ×2 (08:34→21:52)
[2016-08-14] MEDS: OXYBUTYNIN CHLORIDE 5 MG TABLET GT SCH ×2 (08:35→16:31)
[2016-08-14] MEDS: PANTOPRAZOLE ORAL SUSPENSION 40 MG SUSPDR.PKT GT SCH (08:35)
[2016-08-14] MEDS: LACTOBACILLUS RHAMNOSUS GG 1 EACH CAPSULE GT SCH ×2 (08:35→21:52)
[2016-08-14] MEDS: DONEPEZIL 10 MG TABLET GT SCH (08:35)
[2016-08-14] MEDS: CARBIDOPA/LEVODOPA 25-100MG TABLET GT SCH ×3 (08:35→16:31)
[2016-08-14] MEDS: Z GUARD REMEDY PASTE 57 GM TUBE TOP PRN (08:36)
[2016-08-14] MEDS: AMIODARONE HCL 200 MG TABLET PO SCH (08:36)
[2016-08-14 11:33] VITALS: BP 100/56
[2016-08-14] MEDS: MORPHINE SULFATE 2 MG/1 ML DISP.SYRIN IV PRN (14:05)
[2016-08-14 15:10] VITALS: BP 102/48
--- NOTE | 2016-08-14 16:43 | NUR ---
Clinical pharmacy note-Vancomycin dosing per pharmacy Subjective: To continue Vancomycin dosing on this patient for pneumonia Objective: BUN 31 Scr 1.7 WBC 22.9 Temp 98.9 Vancomycin random level: 16.4 Assessment/Plan: Since renal function is unstable, will continue dose by fall-off random level. Since vancomycin random level is 16.4 mcg/ml today, will give vancomycin 750mg IVPB x1 today. Pharmacy shall check srcr in am & decide when to order next vancomycin random level for further dosing. If renal function is stabilized, will consider scheduled dosing. Will monitor daily.
[2016-08-14] MEDS ORDERED: VANCOMYCIN IV 750 MG in IV DEXTROSE 5% 250 ML IV ONE (17:30)
--- NOTE | 2016-08-14 17:30 | NUR ---
CONDITION STABLE PAIN UNDER CONTROL NO RESPIRATORY DISTRESS SAFETY MEASURE PROVIDED BED ALARM ON AND CALL LIGHT WITHIN REACH
[2016-08-14 20:00] VITALS: BP 105/47
--- NOTE | 2016-08-14 20:00 | NUR ---
RECEIVED PT IN BED RESTING WITH EYES CLOSED, NO ACUTE DISTRESS NOTED. EVEN AND NONLABORED BREATHING OBSERVED. ON 2L O2 VIA NC WITH SAT 97% ON THE BEDSIDE O2 MONITOR. NO S/S OF PAIN OR UNEASINESS OBSERVED AT THIS TIME. PRIVATE CAREGIVER AT BEDSIDE. FALL/ASPIRATION PRECAUTIONS OBSERVED. ON GT FEEDING TOLERATING WELL, NO RESIDUAL AT THIS TIME. WILL CONTINUE TO MONITOR.
[2016-08-14] MEDS: VALPROIC ACID 250 MG/5 ML LIQUID UDC GT SCH (21:52)
--- NOTE | 2016-08-14 22:00 | NUR ---
2200 METOPROLOL HELD, PT WITH DECREASED BP-105/47 AND HR-57. WILL CONTINUE TO MONITOR.
[2016-08-15] MEDS: PIPERACILLIN/TAZOBACTAM/D5W 2.25 G in PREMIXED 1 EACH IV SCH ×3 (01:47→14:00)
[2016-08-15] MEDS: IPRATROPIUM BROMIDE 0.5 MG/2.5 ML NEBU NEB SCH ×3 (03:37→11:15)
[2016-08-15] MEDS: ALBUTEROL SULFATE 2.5 MG/3 ML NEBU NEB SCH ×3 (03:37→11:14)
[2016-08-15 05:07] VITALS: BP 109/53
[2016-08-15] MEDS: MORPHINE SULFATE 2 MG/1 ML DISP.SYRIN IV PRN ×2 (05:08→10:57)
[2016-08-15] MEDS: METOPROLOL TARTRATE 25 MG TABLET PO SCH ×2 (05:09→14:00)
[2016-08-15] MEDS: FIBERSOURCE HN 1000ML LIQUID GT PRN (05:30)
--- NOTE | 2016-08-15 07:00 | NUR ---
PT SLEPT WELL, NO ACUTE DISTRESS PER SHIFT. PAIN MANAGED WITH PRN MED PRESCRIBED, GIVEN X1 EFFECTIVE. VS STABLE. HELD LOPRESSOR FOR DECREASE BP, SEE eMAR. ON GT FEEDING TOLERATING WELL, 5CC RESIDUAL THIS AM. ATB GIVEN PRESCRIBED WITH NO A/R NOTED. FALL/ASPIRATION PRECAUTIONS MAINTAINED. BED BATH GIVEN BY STAFF. ALL NEEDS MET. PLAN OF CARE ENDORSED TO DAY SHIFT.
--- NOTE | 2016-08-15 07:58 | NUR ---
Sleeping, O2 at 2L/NC, with HHN, On moderate high back rest. GT feedings at 45ml/hr.
[2016-08-15] MEDS: LACTOBACILLUS RHAMNOSUS GG 1 EACH CAPSULE GT SCH (08:21)
[2016-08-15] MEDS: DONEPEZIL 10 MG TABLET GT SCH (08:21)
[2016-08-15] MEDS: OXYBUTYNIN CHLORIDE 5 MG TABLET GT SCH (08:22)
[2016-08-15] MEDS: CARBIDOPA/LEVODOPA 25-100MG TABLET GT SCH ×2 (08:22→14:50)
[2016-08-15] MEDS: FERROUS SULFATE 300 MG/5 ML LIQUID UDC GT SCH (08:22)
[2016-08-15] MEDS: PANTOPRAZOLE ORAL SUSPENSION 40 MG SUSPDR.PKT GT SCH (08:22)
[2016-08-15] MEDS: AMIODARONE HCL 200 MG TABLET PO SCH (08:23)
[2016-08-15] MEDS ORDERED: FUROSEMIDE 20 MG TABLET PO SCH (09:00)
--- NOTE | 2016-08-15 11:00 | NUR ---
Moaning, verbalized pain, unable to scale. Morphine IV given. Resting after
--- NOTE | 2016-08-15 11:26 | NUR ---
Discharge: The patient's family would like for her to return back home [[place] [address]] once medically cleared. Prior hospitalization, she was living at home with 24-hour care. [facility] [[place] [phone]] has admitted the patient to their service and will resume care in the patient's home. All requested documents have been faxed [[phone]].
--- NOTE | 2016-08-15 12:18 | NUR ---
Clinical pharmacy note-Vancomycin dosing per pharmacy Subjective: To continue Vancomycin dosing on this patient for pneumonia Objective: BUN 31 (6/4) Scr 1.7 (6/4) WBC 22.9 (6/4) Temp 98.6 Vancomycin random level: pending (to be drawn at 1800) Assessment/Plan: Since renal function is unstable, will continue dose by fall-off random level. Vancomycin random level is on order for today at 1800. Pharmacy shall review vancomycin random level when available & further dose if needed. If renal function is stabilized, will consider scheduled dosing. Will monitor daily.
--- NOTE | 2016-08-15 13:23 | NUR ---
Spoke with son [[place] [phone]] who is aware and agreeable with the discharge plans. Patient will be transported via ambulance. Charge nurse, Joe PROCTOR made aware.
[2016-08-15 14:00] VITALS: BP 90/53
--- NOTE | 2016-08-15 15:42 | NUR ---
With discharge order to home with hospice, arranged with [facility]. Son informed. Saline lock removed. G tube intact. Discharged per gurney/ambulance.
== END 2016-08-15 15:40 | disposition hospice, home (50) | DRG 853 ==
LOC: ER 23:18 → TELE 08-02 03:38 → TELE-TD 08-06 01:41 → TELE 08-11 16:06 → MED 08-14 14:20
PROC: 0DH63UZ Insertion of Feeding Device into Stomach, Percutaneous Approach (ICD-10-PCS; principal; 2016-08-07 15:01)
PROC: 0W994ZZ Drainage of Right Pleural Cavity, Percutaneous Endoscopic Approach (ICD-10-PCS; 2016-08-10)
PROC: 0W9B4ZZ Drainage of Left Pleural Cavity, Percutaneous Endoscopic Approach (ICD-10-PCS; 2016-08-11)
DX: A41.9 Sepsis, unspecified organism (principal); J69.0 Pneumonitis due to inhalation of food and vomit; N17.0 Acute kidney failure with tubular necrosis; I50.33 Acute on chronic diastolic (congestive) heart failure; G93.41 Metabolic encephalopathy; J96.91 Respiratory failure, unspecified with hypoxia; D68.59 Other primary thrombophilia; I13.0 Hypertensive heart and chronic kidney disease with heart failure and stage 1 through stage 4 chronic kidney disease, or unspecified chronic kidney disease; J98.11 Atelectasis; E46 Unspecified protein-calorie malnutrition; Z68.1 Body mass index [BMI] 19.9 or less, adult; J90 Pleural effusion, not elsewhere classified; R65.20 Severe sepsis without septic shock; G20 Parkinson's disease; F02.80 Dementia in other diseases classified elsewhere, unspecified severity, without behavioral disturbance, psychotic disturbance, mood disturbance, and anxiety; N32.81 Overactive bladder; N31.9 Neuromuscular dysfunction of bladder, unspecified; I48.0 Paroxysmal atrial fibrillation; F03.90 Unspecified dementia, unspecified severity, without behavioral disturbance, psychotic disturbance, mood disturbance, and anxiety; N18.9 Chronic kidney disease, unspecified; Z66 Do not resuscitate; I25.10 Atherosclerotic heart disease of native coronary artery without angina pectoris; Z85.828 Personal history of other malignant neoplasm of skin; Z85.6 Personal history of leukemia; Z51.5 Encounter for palliative care; Z74.01 Bed confinement status; K44.9 Diaphragmatic hernia without obstruction or gangrene; K22.2 Esophageal obstruction; Z79.899 Other long term (current) drug therapy; F41.9 Anxiety disorder, unspecified; F32.9 Major depressive disorder, single episode, unspecified; D69.6 Thrombocytopenia, unspecified; Z88.8 Allergy status to other drugs, medicaments and biological substances; Z91.018 Allergy to other foods; N39.498 Other specified urinary incontinence; D50.9 Iron deficiency anemia, unspecified; R13.10 Dysphagia, unspecified; R73.9 Hyperglycemia, unspecified; Z74.09 Other reduced mobility; K82.8 Other specified diseases of gallbladder; I70.0 Atherosclerosis of aorta; R19.7 Diarrhea, unspecified; D72.821 Monocytosis (symptomatic)
CPT/HCPCS: 32555; 36415; 43235; 70030-TC; 70450; 71010; 71250; 74000; 76604; 76770; 80164; 82746; 83550; 83605; 83615; 83735; 83970; 83986; 84100; 84155; 84156; 84165; 84300; 84443; 85025; 85610; 85730; 87040; 87070; 87075; 87086; 87205; 92610; 93005; 93307; 94640; 94664; 94762; 97110; 97112; 97116; 97161; 97530; A4217; A4663; C1758; C9113; J0282; J0330; J0360; J0456; J0690; J0696; J1940; J2270; J2405; J2543; J3370; J3490; J3590; J7030; J7040; J7042; J7060